=== PATIENT | female | born 1965 | race Caucasian/White ===

== ENCOUNTER 2017-06-10 18:54 | Emergency (ER) | payer OTHER ==
[2017-06-10] MEDS ORDERED: SODIUM CHLORIDE 0.9% 1,000 ML IV STA (20:32)
--- NOTE | 2017-06-10 21:02 | ED ---
Abdominal Pain HPI - General Chief Complaint: Abdominal Pain Stated Complaint: abdominal pain-sent by [facility] [employer] Time Seen by Provider: 06/10/17 20:32 Source: patient, RN notes reviewed Mode of arrival: ambulatory Limitations: no limitations - History of Present Illness Initial Comments: 51-year-old female presented from it to complaint of abdominal pain, bloating. Patient states symptoms started today. She states that she has more diffuse abdominal pain but is worse when she presses on her abdomen. Patient states she did have some back discomfort earlier but has resolved. Denies chest pain, shortness breath. Patient had prior appendectomy no other abdominal surgeries. She denies any nausea vomiting diarrhea constipation. No dysuria no hematuria. Patient was seen at [facility] and sent here for further evaluation. She did have urinalysis which was unremarkable. Patient denies prior colonoscopy. Denies any melena or hematochezia. - Related Data Home Medications Medication Instructions Recorded Confirmed No Known Home Medications [No 06/10/17 06/10/17 Known Home Medications] Allergies Allergy/AdvReac Type Severity Reaction Status Date / Time No Known Allergies Allergy Verified 06/10/17 20:36 Review of Systems ROS Statement: Those systems with pertinent positive or pertinent negative responses have been documented in the HPI. ROS Other: All systems not noted in ROS Statement are negative. Past Medical History Past Medical History: No Reported History History of Any Multi-Drug Resistant Organisms: None Reported Past Surgical History: Appendectomy, Tubal Ligation Past Psychological History: No Psychological Hx Reported Smoking Status: Current every day smoker Past Alcohol Use History: Occasional Past Drug Use History: None Reported General Exam Limitations: no limitations General appearance: alert, in no apparent distress Head exam: Present: atraumatic, normocephalic, normal inspection Neck exam: Present: normal inspection. Absent: tenderness, meningismus, lymphadenopathy Respiratory exam: Present: normal lung sounds bilaterally. Absent: respiratory distress, wheezes, rales, rhonchi, stridor Cardiovascular Exam: Present: regular rate, normal rhythm, normal heart sounds. Absent: systolic murmur, diastolic murmur, rubs, gallop, clicks GI/Abdominal exam: Present: soft, tenderness (Eljf-me-wvriiwnp diffuse), normal bowel sounds. Absent: distended, guarding, rebound, rigid Back exam: Absent: CVA tenderness (R), CVA tenderness (L) Course Vital Signs 06/10/17 06/10/17 19:39 21:53 Temperature 97.5 F L 98.9 F Pulse Rate 91 83 Respiratory 16 18 Rate Blood Pressure 112/72 122/72 O2 Sat by Pulse 100 98 Oximetry Medical Decision Making - Lab Data Result diagrams: 06/10/17 21:18 06/10/17 21:18 Lab Results 06/10/17 06/10/17 06/10/17 Range/Units 21:18 21:18 21:18 WBC 11.5 H (3.8-10.6) k/uL RBC 4.98 (3.80-5.40) m/uL Hgb 14.8 (11.4-16.0) gm/dL Hct 45.2 (34.0-46.0) % MCV 90.8 (80.0-100.0) fL MCH 29.7 (25.0-35.0) pg MCHC 32.8 (31.0-37.0) g/dL RDW 13.2 (11.5-15.5) % Plt Count 237 (150-450) k/uL Neutrophils % 76 % Lymphocytes % 17 % Monocytes % 4 % Eosinophils % 2 % Basophils % 0 % Neutrophils # 8.7 H (1.3-7.7) k/uL Lymphocytes # 1.9 (1.0-4.8) k/uL Monocytes # 0.5 (0-1.0) k/uL Eosinophils # 0.2 (0-0.7) k/uL Basophils # 0.0 (0-0.2) k/uL Sodium 143 (137-145) mmol/L Potassium 4.2 (3.5-5.1) mmol/L Chloride 101 (98-107) mmol/L Carbon Dioxide 28 (22-30) mmol/L Anion Gap 14 mmol/L BUN 15 (7-17) mg/dL Creatinine 0.80 (0.52-1.04) mg/dL Est GFR (CKD-EPI)AfAm >90 (>60 ml/min/1.73 sqM) Est GFR (CKD-EPI)NonAf 85 (>60 ml/min/1.73 sqM) Glucose 99 (74-99) mg/dL Calcium 10.0 (8.4-10.2) mg/dL Total Bilirubin 0.4 (0.2-1.3) mg/dL AST 23 (14-36) U/L ALT 23 (9-52) U/L Alkaline Phosphatase 78 (38-126) U/L Total Protein 7.4 (6.3-8.2) g/dL Albumin 4.5 (3.5-5.0) g/dL Amylase 50 (30-110) U/L Lipase 65 (23-300) U/L Urine Color Colorless Urine Appearance Clear (Clear) Urine pH 5.5 (5.0-8.0) Ur Specific [place] 1.005 (1.001-1.035) Urine Protein Negative (Negative) Urine Glucose (UA) Negative (Negative) Urine Ketones Negative (Negative) Urine Blood Negative (Negative) Urine Nitrite Negative (Negative) Urine Bilirubin Negative (Negative) Urine Urobilinogen <2.0 (<2.0) mg/dL Ur Leukocyte Esterase Moderate H (Negative) Urine RBC 1 (0-5) /hpf Urine WBC 5 (0-5) /hpf Ur Squamous Epith Cells <1 (0-4) /hpf Urine Bacteria Few H (None) /hpf Disposition Clinical Impression: Abdominal pain, Enteritis Disposition: HOME SELF-CARE Condition: Stable Instructions: Abdominal Pain (ED) Additional Instructions: Please return to the Emergency Department if symptoms worsen or any other concerns. Referrals: None,Stated [Primary Care Provider] - 1-2 days Vivi Robles MD [STAFF PHYSICIAN] - 1-2 days Time of Disposition: 00:15
--- NOTE | 2017-06-10 21:30 | XR ---
EXAMINATION TYPE: XR KUB DATE OF EXAM: 06/10/2017 COMPARISON: NONE HISTORY: Abdominal pain TECHNIQUE: 2 views FINDINGS: There is no sign of intestinal obstruction or pneumoperitoneum. Fecal pattern is normal. Th ere is some linear density at the right lung base. There are no pathologic calcifications over the ki dneys. IMPRESSION: Nonacute abdomen. Subsegmental atelectasis at the right lung base.
[2017-06-10 21:44] LABS: Appearance,Urine Clear (Clear); Bacteria,Urine Few /hpf; Bilirubin,Urine Negative (Negative); Blood,Urine Negative (Negative); Color,Urine Colorless; Glucose,Urine (UA) Negative (Negative); Ketones,Urine Negative (Negative); Leukocyte Esterase,Urine Moderate (Negative); Nitrite,Urine Negative (Negative); PH, Urine 5.5 (5.0-8.0); Protein,Urine Negative (Negative); RBC,Urine 1 /hpf (0-5); Specific Gravity,Urine 1.005 (1.001-1.035); Squamous Epithelial Cell,Urine <1 /hpf (0-4); Urobilinogen,Urine <2.0 mg/dL (<2.0); WBC,Urine 5 /hpf (0-5)
[2017-06-10 21:45] LABS: Basophils % (A) 0 %; Eosinophils # (A) 0.2 k/uL (0-0.7); Eosinophils % (A) 2 %; HCT 45.2 % (34.0-46.0); HGB 14.8 gm/dL (11.4-16.0); Lymphocytes # (A) 1.9 k/uL (1.0-4.8); Lymphocytes % (A) 17 %; MCH 29.7 pg (25.0-35.0); MCHC 32.8 g/dL (31.0-37.0); MCV 90.8 fL (80.0-100.0); Mean Platelet Volume 7.5; Monocytes # (A) 0.5 k/uL (0-1.0); Monocytes % (A) 4 %; Neutrophils # (A) 8.7 k/uL (1.3-7.7); Neutrophils % (A) 76 %; Platelet Count 237 k/uL (150-450); RBC 4.98 m/uL (3.80-5.40); RDW 13.2 % (11.5-15.5); WBC 11.5 k/uL (3.8-10.6)
[2017-06-10 21:54] VITALS: RESP 18
[2017-06-10 22:04] LABS: ALT 23 U/L (9-52); AST 23 U/L (14-36); Albumin 4.5 g/dL (3.5-5.0); Alkaline Phosphatase 78 U/L (38-126); Amylase 50 U/L (30-110); Anion Gap 14 mmol/L; Blood Urea Nitrogen 15 mg/dL (7-17); Carbon Dioxide 28 mmol/L (22-30); Chloride 101 mmol/L (98-107); Glucose 99 mg/dL (74-99); Lipase 65 U/L (23-300); Potassium 4.2 mmol/L (3.5-5.1); Sodium 143 mmol/L (137-145); Total Bilirubin 0.4 mg/dL (0.2-1.3); Total Protein 7.4 g/dL (6.3-8.2)
[2017-06-10] MEDS ORDERED: RX INFO: IV CONTRAST WAS GIVEN 1 EACH MISC MISCELLANE PRN (22:09)
--- NOTE | 2017-06-11 00:10 | CT ---
EXAMINATION TYPE: CT abdomen pelvis w con DATE OF EXAM: 06/10/2017 COMPARISON: NONE HISTORY: Generalized abdominal pain and bloating. CT DLP: 957.7 mGycm Automated exposure control for dose reduction was used. TECHNIQUE: Helical acquisition of images was performed from the lung bases through the pelvis. CONTRAST: Performed without Oral Contrast and with IV Contrast, patient injected with 100 mL of Isovue 300. FINDINGS: There is some patchy atelectasis at the lung bases. There is no pleural effusion. There is no pericar dial effusion. Heart is enlarged. Liver spleen pancreas gallbladder appear normal. Bile ducts are not dilated. There is no adrenal mass . Kidneys show satisfactory contrast opacification. There is no hydronephrosis. There is a 1 cm hypod ensity in the lateral right kidney consistent with cortical cyst. There is no retroperitoneal adenopa thy. There is no ascites. I see no intestinal wall thickening. There are no dilated loops. Bladder distends smoothly. There is no sign of a pelvic mass. Bony structures are intact. Uterus is retroverted. IMPRESSION: SMALL RIGHT RENAL CORTICAL CYST. NO EVIDENCE OF RENAL OBSTRUCTION OR STONE. NO SIGN OF APPENDICITIS. ATELECTASIS AT THE LUNG BASES.
[2017-06-11 00:34] VITALS: BP 127/71; PULSE 88; TEMP 98.3
== END 2017-06-11 00:34 | disposition home or self-care (01) ==
LOC: EC 18:54
DX: K52.9 Noninfective gastroenteritis and colitis, unspecified (principal); F17.200 Nicotine dependence, unspecified, uncomplicated; Z90.49 Acquired absence of other specified parts of digestive tract
CPT/HCPCS: 99284; 96360; 36415; 80053; 82150; 83690; 85025; 81001; 74018; 74177; Q9967

== ENCOUNTER → 2017-12-31 | Outpatient (CLI) | payer OTHER ==
--- NOTE | 2017-12-31 15:23 | XR ---
EXAMINATION TYPE: XR femur LT DATE OF EXAM: 12/31/2017 CLINICAL HISTORY: Left finger pain and bruising after fall. TECHNIQUE: Two views of the left femur are obtained. COMPARISON: None FINDINGS: There is no acute fracture or dislocation seen in the left femur. The left hip and knee j oints demonstrate mild joint space narrowing compatible with mild arthropathy of both joints The over lying soft tissue appears unremarkable. IMPRESSION: There is no acute fracture or dislocation in the left femur.
--- NOTE | 2017-12-31 15:27 | XR ---
EXAMINATION TYPE: XR Hip Complete LT DATE OF EXAM: 12/31/2017 CLINICAL HISTORY: Left hip pain and bruising after a fall TECHNIQUE: AP and frogleg views of the left hip are obtained. COMPARISON: None. FINDINGS: There is no acute fracture/dislocation evident in the left hip. The joint space in the le ft hip demonstrates small subchondral cysts, acetabular sclerosis and slight cephalad joint space huey rowing compatible with mild arthropathy.. The overlying soft tissue appears unremarkable. IMPRESSION: There is no acute fracture or dislocation in the left hip.
== END | disposition home or self-care (01) ==
LOC: RADXRMAIN 14:54
PROVIDERS: ATTEND Family Medicine
DX: S79.922A Unspecified injury of left thigh, initial encounter (principal); R58 Hemorrhage, not elsewhere classified
CPT/HCPCS: 73502

== ENCOUNTER → 2017-12-31 | Outpatient (CLI) | payer OTHER ==
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
== END | disposition home or self-care (01) ==
LOC: RADUSWWP 14:11
PROVIDERS: ATTEND Family Medicine
DX: S79.922A Unspecified injury of left thigh, initial encounter (principal)

== ENCOUNTER → 2021-05-01 | Outpatient (CLI) | payer OTHER ==
--- NOTE | 2021-05-02 10:46 | MM ---
Reason for exam: screening (asymptomatic). Last mammogram was performed 14 years and 10 months ago. History: Patient is postmenopausal. Physical Findings: A clinical breast exam by your physician is recommended on an annual basis and results should be correlated with mammographic findings. MG Screening Mammo w CAD Bilateral CC and MLO view(s) were taken. Prior study comparison: July 08, 2006, bilateral screening mammogram w/CAD. The breast tissue is heterogeneously dense. This may lower the sensitivity of mammography. There is no discrete abnormality. ASSESSMENT: Negative, BI-RAD 1 RECOMMENDATION: Routine screening mammogram of both breasts in 1 year.
== END | disposition home or self-care (01) ==
LOC: RADMAMWWP 12:49
PROVIDERS: ATTEND Family Medicine
DX: Z12.31 Encounter for screening mammogram for malignant neoplasm of breast (principal); Z78.0 Asymptomatic menopausal state
CPT/HCPCS: 77067

== ENCOUNTER → 2021-05-01 | Outpatient (CLI) | payer OTHER ==
--- NOTE | 2021-05-01 15:02 | US ---
EXAMINATION TYPE: US thyroid st tissue head/neck DATE OF EXAM: 05/01/2021 COMPARISON: NONE CLINICAL HISTORY: R79.89 Abn blood chemistry. Patient on thyroid meds GLAND SIZE: Right Lobe: 5.2 x 1.5 x 1.3 cm Overall Parenchyma: heterogenous Left Lobe: 4.7 x 1.3 x 1.4 cm Overall Parenchyma: heterogeneous Isthmus Thickness: 0.1 cm NODULES RIGHT: # of nodules measured on right: 0 LEFT: # of nodules measured on left: 0 ISTHMUS: # of nodules measured in the isthmus: 0 Bilateral neck scanned, no evidence of lymphadenopathy. IMPRESSION: 1. Unremarkable thyroid ultrasound.
== END | disposition home or self-care (01) ==
LOC: RADUSWWP 12:51
PROVIDERS: ATTEND Family Medicine
DX: R79.89 Other specified abnormal findings of blood chemistry (principal)
CPT/HCPCS: 76536

== ENCOUNTER 2024-06-18 08:38 | Day surgery (SDC) | payer OTHER ==
[2024-06-18 09:13] LABS: Mean Platelet Volume 9.1 fL (9.5-12.2); Platelet Count 211 10*3/uL (140-440)
[2024-06-18 09:20] LABS: Prothrombin Time 10.9 sec (10.0-12.5)
[2024-06-18 09:25] VITALS: TEMP 98.1
[2024-06-18 09:49] VITALS: RESP 16
--- NOTE | 2024-06-18 10:32 | XR ---
EXAMINATION TYPE: XR chest 1V portable DATE OF EXAM: 06/18/2024 10:25 AM COMPARISON: CT chest abdomen pelvis 04/17/2024 TECHNIQUE: XR chest 1V portable Portable AP radiograph of the chest. CLINICAL INDICATION:Female, 59 years old with history of post thora; FINDINGS: Lungs/Pleura: Decreased now trace right pleural effusion with right basilar atelectasis status post t horacentesis. No discrete pneumothorax. Linear scarring or atelectasis within the right midlung. Pulmonary vascularity: Unremarkable. Heart/mediastinum: Cardiomediastinal silhouette is unremarkable. Musculoskeletal: No acute osseous pathology. IMPRESSION: Decreased now trace right pleural effusion with adjacent atelectasis status post thoracentesis. No di screte pneumothorax. [facility], , 06/18/2024 10:30 AM
[2024-06-18 10:51] VITALS: BP 144/92; PULSE 95
--- NOTE | 2024-06-18 12:18 | US ---
EXAMINATION TYPE: US thoracentesis DATE OF EXAM: 06/18/2024 10:19 AM COMPARISON: , chest radiograph CLINICAL INDICATION:Female, 59 years old with history of J91.8 PLEURAL EFFUSION IN OTHER CONDITIONS C LASSIF; PROCEDURE: Informed consent was obtained. The risks of the procedure were extensively explained incl uding risk of pneumothorax and need for chest tube placement. Procedure was performed in the Ultraso und procedure suite. Ultrasound imaging of the chest demonstrates right pleural effusion. An approp riate access site was localized to the posterior left pleural space. Timeout was taken per protocol. The skin was prepped and draped in the usual sterile fashion and then locally anesthetized with 1% l idocaine. The pleural cavity was then accessed via a 5-[place] one-step needle/catheter. Approximate ly 1500 mL of clear straw-colored fluid was obtained. Samples were sent to the lab for analysis. Pl eural catheter was removed from the patient.Postprocedural imaging of the chest demonstrate a decreas ed amount of pleural fluid. Patient tolerated procedure well without immediate complication. Hemostasis at the procedural site w as obtained with a sterile bandage placed. Immediate following the procedure, an inspiratory and expi ratory chest x-ray was reviewed. No post procedure pneumothorax was identified. The patient was monit ored in the holding area for approximately one hour following the procedure and was subsequently disc harged in stable condition. IMPRESSION: Ultrasound guided thoracentesis, with approximately 1500 mL of clear straw-colored fluid drained. Pathology results pending. No immediate complications were evident. The patient was informe d by the nurse that we do not recommend air travel within 24 hours of the thoracentesis. Apparently t he patient is scheduled for air travel on 06/19/2024. [facility], , 06/18/2024 12:16 PM
== END 2024-06-18 10:45 | disposition home or self-care (01) ==
LOC: RADPROMAIN 08:38
PROVIDERS: ATTEND Internal Medicine Hematology & Oncology
DX: J98.4 Other disorders of lung (principal); J91.8 Pleural effusion in other conditions classified elsewhere
CPT/HCPCS: 32555; 36415; 71045; 82947; 85049; 85610; 88108; 88305; 88341; 88342

== ENCOUNTER → 2024-07-10 | Outpatient (CLI) | payer OTHER ==
[2024-07-10 11:57] LABS: African American GFR (CKD) >90 (>60 ml/min/1.73 sqM); Blood Urea Nitrogen 14 mg/dL (7-17); Non-African American GFR(CKD) >90 (>60 ml/min/1.73 sqM)
--- NOTE | 2024-07-10 18:48 | CT ---
EXAMINATION TYPE: CT ChestAbdPelvis w con DATE OF EXAM: 07/10/2024 1:32 PM COMPARISON: 04/17/2024 CLINICAL INDICATION: Female, 59 years old with history of C34.90 MALIGNANT NEOPLASM OF UNSP PART OF U NSP BRO, LUNG CANCER TECHNIQUE: CT ChestAbdPelvis w con , with sagittal coronal reformats. If MIP/3-D images were created, there are created on a separate workstation. Contrast used:100ml mL of Isovue 300 with IV Contrast, (none if empty) Oral contrast used: with Oral Contrast (none if empty) CT DLP: 1275 mGycm, Automated exposure control for dose reduction was used. FINDINGS: CT CHEST: Thyroid appears atrophic. There is moderate right pleural effusion, similar to comparison1. Scattered punctate densities are wi thin the lung herrmann. Example images series 4 image 22, image 20, image 18. There is a 0.6 x 1.8 cm spiculated oval density in the periphery of the right anterior lateral lung. Series 4 image 27. This has enlarged from the comparison. Increased densities in the right infrahilar region with peribronchial surrounding soft tissue. No enlarged mediastinal or hilar adenopathy is evident. No significant coronary artery calcification s. The ascending aorta diameter at the level of the main pulmonary artery is 3.6 cm. The main pulmonary artery diameter at the bifurcation is 3.8 cm. Correlate for pulmonary hypertension. Moderate pericar dial effusion is present. CT ABDOMEN: Liver: Normal Spleen: Normal Pancreas: Normal Adrenal glands: Left adrenal gland is somewhat rounded measuring 1.8 cm. There is thickening of the r ight adrenal gland with a transverse dimension of 1.5 cm. Gallbladder: Normal Kidneys: No masses are evident. No hydronephrosis is present. There is a 1.6 cm cyst on the lateral right kidney. Delayed images were obtained through the kidneys, which remain unremarkable. Aorta: Vascular calcification is within the aorta. Inferior vena cava: Normal. CT PELVIS: Varicosities are within the anterior subcutaneous abdomen since the periumbilical region Loops of bowel within the abdomen and pelvis are normal. There are loops of bowel which are incom pletely distended or lack oral contrast limiting their evaluation. Appendix: Normal as visualized. Urinary bladder: Decompressed limiting evaluation Genitourinary structures: Uterus appears normal. Adnexa are unremarkable. Osseous structures: No suspicious lytic or sclerotic lesions. IMPRESSION: 1. Spiculated peripheral right lung density suspicious for the patient's lung cancer. 2. Moderate right pleural effusion, stable. 3. Moderate pericardial effusion slightly increased from comparison. 4. Thickening of the bilateral adrenal glands. Metastasis should be considered. 5. Scattered new punctate nodularities within the periphery of the right lung. Consider metastasis. [facility], , 07/10/2024 6:45 PM
== END | disposition home or self-care (01) ==
LOC: RADCTMAIN 11:05
PROVIDERS: ATTEND Internal Medicine Hematology & Oncology
DX: C34.90 Malignant neoplasm of unspecified part of unspecified bronchus or lung (principal); J98.4 Other disorders of lung; R59.0 Localized enlarged lymph nodes; J90 Pleural effusion, not elsewhere classified; I31.39 Other pericardial effusion (noninflammatory); R91.8 Other nonspecific abnormal finding of lung field; Z71.3 Dietary counseling and surveillance
CPT/HCPCS: 71260; 74177; 82565; 84520

== ENCOUNTER → 2024-07-21 | Outpatient (CLI) | payer OTHER ==
[2024-07-21 15:06] LABS: African American GFR (CKD) >90 (>60 ml/min/1.73 sqM); Blood Urea Nitrogen 16 mg/dL (7-17); Non-African American GFR(CKD) >90 (>60 ml/min/1.73 sqM)
--- NOTE | 2024-07-22 08:25 | CT ---
EXAMINATION TYPE: CT brain w con DATE OF EXAM: 07/21/2024 COMPARISON: PET CT 01/27/2024 and MRI brain 12/07/2023 CLINICAL INDICATION: Female, 59 years old with history of G93.89 OTHER SPECIFIED DISORDERS OF BRAIN; PHH, LUMP ON BACK OF HEAD X 4 MONTHS, HX OF LUNG CA- DOING THERAPY NOW, FINISHED CHEMO 3+ MONTHS AGO TECHNIQUE: CT of the brain is performed with IV Contrast, patient injected with 100 ml mL of Isovue 300. Coronal and sagittal reconstructions performed. CT DLP: 1156 mGycm Automated exposure control for dose reduction was used. FINDINGS: Multiple new enhancing intracranial masses, largest anterior right frontal lobe measuring 3.3 cm with surrounding vasogenic edema. This results in slight 4 mm of leftward midline shift anteriorly. Numerous additional lesions are present, a second dominant lesion involving the left anterior body of the corpus callosum measuring up to 1.9 cm. 1.8 cm lesion left cerebellar hemisphere. There is a large enhancing mass centered over the right parietal calvarium with extraosseous extensio n prominently protruding the scalp and also into the extra-axial space. This measures up to 8.2 cm wi de by 4.6 cm thick by 7.9 cm AP, coronal image 53 and sagittal image 40. This also causes some crowdi ng of the right parietal gyri. There may be slight mass effect on to the right lateral ventricle though this was smaller on the 12/06 exam as well probably in part due to anatomic variation. No effacement of basal subarachnoid cisterns. Elliott-white matter differential appears maintained. Paranasal sinuses and mastoid air cells well pneumatized. Orbits and globes are intact. IMPRESSION: 1. Disease progression with numerous new brain metastases, largest measuring 3.3 cm. This largest les ion is in the anterior frontal lobe with mild vasogenic edema and causing minimal 4 mm of anterior le ftward midline shift. No herniation. 2. Large mass centered over the right parietal calvarium with extraosseous extension protruding into the scalp and also into the extra-axial space. This measures 8.2 x 4.6 x 7.9 cm. Extension into the e xtra-axial space causes crowding of the underlying parietal cortex. [facility], , 07/22/2024 8:22 AM
== END | disposition home or self-care (01) ==
LOC: RADCTMAIN 14:26
PROVIDERS: ATTEND Internal Medicine Hematology & Oncology
DX: C79.31 Secondary malignant neoplasm of brain (principal); G93.89 Other specified disorders of brain; R59.0 Localized enlarged lymph nodes; J98.4 Other disorders of lung; G93.6 Cerebral edema; Z71.3 Dietary counseling and surveillance
CPT/HCPCS: 82565; 84520; 70460; 36415; Q9967

== ENCOUNTER → 2024-08-10 | Outpatient (CLI) | payer OTHER ==
--- NOTE | 2024-08-10 09:34 | XR ---
EXAMINATION TYPE: XR chest w decubitus 4 views DATE OF EXAM: 08/10/2024 9:21 AM COMPARISON: None. CLINICAL INDICATION: Female, 59 years old with history of C79.31 SECONDARY MALIGNANT NEOPLASM OF BRAI N, TECHNIQUE: XR chest w decubitus 4 views view(s) obtained. FINDINGS: The heart size is normal. The pulmonary vasculature is normal. There is a small right free-flowing pleural effusion. No left pleural effusion identified.. Atelectatic changes at the right base have resolved. IMPRESSION: 1. Small right free-flowing pleural effusion [facility], , 08/10/2024 9:31 AM
== END | disposition home or self-care (01) ==
LOC: RADXRMAIN 08:54
PROVIDERS: ATTEND Radiology Radiation Oncology
DX: C79.31 Secondary malignant neoplasm of brain (principal); J90 Pleural effusion, not elsewhere classified
CPT/HCPCS: 71048

== ENCOUNTER → 2024-08-11 | Outpatient (CLI) | payer OTHER ==
[2024-08-11 15:07] LABS: Basophils # (A) 0.02 X 10*3/uL (0.00-0.10); Basophils % (A) 0.2 %; Eosinophils # (A) 0.06 X 10*3/uL (0.04-0.35); Eosinophils % (A) 0.6 %; HGB 14.6 g/dL (12.0-15.0); Lymphocytes # (A) 0.39 X 10*3/uL (0.90-5.00); Lymphocytes % (A) 4.1 %; MCH 29.7 pg (27.0-32.0); MCHC 32.4 g/dL (32.0-37.0); MCV 91.6 FL (80.0-97.0); Mean Platelet Volume 10.5 FL (9.5-12.2); Monocytes % (A) 6.4 %; NRBC Per 100 WBC 0 X 10*3/uL (0.00-0.01); Neutrophils # (A) 8.29 X 10*3/uL (1.80-7.70); Platelet Count 199 X 10*3/uL (140-440); RBC 4.91 X 10*6/uL (4.10-5.20); RDW 13.5 % (11.5-14.5); WBC 9.43 X 10*3/uL (4.50-10.00)
[2024-08-11 15:31] LABS: ALT 14 U/L (8-44); AST 12 U/L (13-35); Albumin 4.2 g/dL (3.8-4.9); Albumin/Globulin Ratio 1.62 Ratio (1.60-3.17); Alkaline Phosphatase 99 U/L (41-126); BUN/Creat Ratio 27.78 Ratio (12.00-20.00); Calcium 9.4 mg/dL (8.7-10.3); Carbon Dioxide 27.5 mmol/L (21.6-31.8); Chloride 96 mmol/L (96-109); Globulin 2.6 g/dL (1.6-3.3); Glucose 319 mg/dL (70-110); Potassium 4.8 mmol/L (3.5-5.5); Sodium 136 mmol/L (135-145); T4, Free (Free Thyroxine) 1.72 ng/dL (0.80-1.80); Total Bilirubin 0.5 mg/dL (0.3-1.2); Total Protein 6.8 g/dL (6.2-8.2)
== END | disposition home or self-care (01) ==
LOC: LABWHC1 07:37
PROVIDERS: ATTEND Radiology Radiation Oncology
DX: C79.31 Secondary malignant neoplasm of brain (principal); D63.0 Anemia in neoplastic disease; E03.2 Hypothyroidism due to medicaments and other exogenous substances; E55.9 Vitamin D deficiency, unspecified; R53.82 Chronic fatigue, unspecified
CPT/HCPCS: 36415; 80053; 83036; 84439; 84443; 84481; 85025

== ENCOUNTER 2024-08-24 11:18 | Inpatient (IN) | payer OTHER ==
--- NOTE | 2024-08-24 11:33 | ED ---
General Adult HPI - General Source: patient, family, RN notes reviewed Mode of arrival: wheelchair Limitations: no limitations <Julieth Elkins - Last Filed: 08/24/24 11:34> - General Source: patient, family, RN notes reviewed Limitations: no limitations <Carl Griffith - Last Filed: 08/24/24 15:56> - General Stated complaint: Weakness Time Seen by Provider: 08/24/24 11:32 - History of Present Illness Initial comments: Quick note: 59-year-old female presented to the ER for evaluation of weakness. Patient has known stage IV lung cancer and is following up with Dr. Rene. Sister reports patient is extremely weak and unable to walk. This has been worse over the past couple of days. Patient was sent in by Dr. Rene for further evaluation given this. (Julieth Elkins) Patient is a 59-year-old female present to the emergency department for weakness. History provided by sister. Patient does not provide any significant history but will state her first name and where she is. Patient has difficulty following commands. 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 Patient has been on chemotherapy x 3. Patient has had immunotherapy stopped recently. Patient is on radiation treatment to the brain for metastasis. Patient has not been eating or drinking much the last couple of days. Today patient is not getting out of bed without assistance. Sister states patient seems more drowsy even now. Patient is full code at this time. (Carl Griffith) - Related Data Home Medications Medication Instructions Recorded Confirmed Albuterol Inhaler [Ventolin Hfa 1 - 2 puff INHALATION RT-Q6H PRN 11/06/23 07/23/24 Inhaler] Levothyroxine Sodium [Levoxyl] 112 mcg PO DAILY 06/15/24 07/23/24 Potassium Chloride ER [K-Dur 20] 20 meq PO W/BRKFST 06/18/24 07/23/24 Atorvastatin [Lipitor] 10 mg PO HS 07/23/24 07/23/24 hydroCHLOROthiazide [Hydrodiuril] 25 mg PO DAILY 07/23/24 07/23/24 Previous Rx's Medication Instructions Recorded Famotidine [Pepcid] 20 mg PO BID #60 tablet 07/25/24 dexAMETHasone ORAL [Hexadrol] 4 mg PO Q6HR #120 tablet 07/25/24 levETIRAcetam [Keppra] 500 mg PO Q12HR #60 tab 07/25/24 metFORMIN HCL [metFORMIN HCL ER 500 mg PO BID #60 tab 07/25/24 Osmotic] Allergies Allergy/AdvReac Type Severity Reaction Status Date / Time No Known Allergies Allergy Verified 08/24/24 11:50 Review of Systems ROS Other: All systems not noted in ROS Statement are negative. <Julieth Elkins - Last Filed: 08/24/24 11:34> ROS Other: All systems not noted in ROS Statement are negative. Constitutional: Denies: fever Eyes: Denies: eye pain ENT: Denies: ear pain Endocrine: Reports: fatigue Neurological: Reports: confusion <Carl Griffith - Last Filed: 08/24/24 15:56> ROS Statement: Those systems with pertinent positive or pertinent negative responses have been documented in the HPI. Past Medical History Past Medical History: COPD, Diabetes Mellitus, Hyperlipidemia, Hypertension, Thyroid Disorder Additional Past Medical History / Comment(s): Hypertension new october 2023 while in hospital, pleural effusion, lung cancer History of Any Multi-Drug Resistant Organisms: None Reported Past Surgical History: Appendectomy, Tubal Ligation Additional Past Surgical History / Comment(s): lung biopsy october 2023, Multi thoracentesis Past Anesthesia/Blood Transfusion Reactions: No Reported Reaction Smoking Status: Former smoker Additional Past Alcohol Use History / Comment(s): Smokes 1 PPD. States drinks m ore than than 7 drinks per week. - Past Family History Mother Family Medical History: Cancer Additional Family Medical History / Comment(s): Lung <Julieth Elkins - Last Filed: 08/24/24 11:34> General Exam <Julieth Elkins - Last Filed: 08/24/24 11:34> Limitations: no limitations General appearance: in no apparent distress (Drowsy. Arousable to touch.) Head exam: Present: atraumatic Eye exam: Present: normal appearance, PERRL, EOMI ENT exam: Present: mucous membranes dry Neck exam: Present: normal inspection Respiratory exam: Present: normal lung sounds bilaterally Cardiovascular Exam: Present: tachycardia GI/Abdominal exam: Present: soft. Absent: tenderness Extremities exam: Present: normal inspection Neurological exam: Present: alert, altered. Absent: motor sensory deficit (Fol low some commands) Expanded Neurological exam: Present: protecting the airway Patient oriented to: Present: person, place. Absent: time Psychiatric exam: Present: flat affect Skin exam: Present: mottled <Carl Griffith - Last Filed: 08/24/24 15:56> - General Exam Comments Initial Comments: Visual Physical Exam Vital signs reviewed General: ill-appearing, nontoxic, no acute distress. Head: Normocephalic, atraumatic Eyes: PERRLA, EOMI ENT: Airway patent Chest: Nonlabored breathing Skin: No visual rash, normal skin tone, discoloration of bilateral fingers and toes Neuro: Alert and oriented 3 Musculoskeletal: No gross abnormalities (Julieth Elkins) Course Vital Signs 08/24/24 08/24/24 08/24/24 11:39 13:52 15:00 Temperature 97.5 F L Pulse Rate 133 H 122 H 123 H Respiratory 20 30 H 20 Rate Blood Pressure 100/80 122/80 110/83 O2 Sat by Pulse 95 98 96 Oximetry EKG Findings - EKG Results: EKG: interpreted by ERMD, normal axis, normal QRS, normal ST/T EKG shows: tachycardia <Carl Griffith - Last Filed: 08/24/24 15:56> Medical Decision Making <Julieth Elkins - Last Filed: 08/24/24 11:34> - Lab Data Result diagrams: 08/24/24 13:51 08/24/24 13:51 <Carl Griffith - Last Filed: 08/24/24 15:56> - Medical Decision Making I performed the quick note portion of this chart. Electronically signed by Julieth Elkins PA-C (Julieth Elkins) Was pt. sent in by a medical professional or institution ([facility], [facility], urgent care, hospital, or [facility]...) When possible be specific @ -No Did you speak to anyone other than the patient for history (EMS, parent, family, police, friend...)? What history was obtained from this source @ -Sister is present and helps provide history as patient is a poor historian and not speaking much Did you review nursing and triage notes (agree or disagree)? Why? @ -I reviewed and agree with nursing and triage notes Were old charts reviewed (outside hosp., previous admission, EMS record, old EKG, old radiological studies, urgent care reports/EKG's, [facility] records)? Report findings @ -Previous x-rays were reviewed without evidence of nodule seen today Differential Diagnosis (chest pain, altered mental status, abdominal pain women, abdominal pain men, vaginal bleeding, weakness, fever, dyspnea, syncope, headache, dizziness, GI bleed, back pain, seizure, CVA, palpatations, mental health, musculoskeletal)? @ -Differential Altered Mental Status: Hypoglycemia, DKA, hypercapnia, ETOH, overdose, CO poisoning, trauma, myxedema coma, HTN encephalopathy, infection, encephalitis, psychosis, intercranial hemorrhage, hepatic encephalopathy, meningitis, CVA, this is not meant to be an all-inclusive list EKG interpreted by me (3pts min.). @ -As above X-rays interpreted by me (1pt min.). @ -Chest x-ray shows pulmonary nodules CT interpreted by me (1pt min.). @ -CT scan of the brain shows lesions, somewhat improved from prior U/S interpreted by me (1pt. min.). @ -None done What testing was considered but not performed or refused? (CT, X-rays, U/S, labs)? Why? @ -None What meds were considered but not given or refused? Why? @ -None Did you discuss the management of the patient with other professionals (professionals i.e. , PA, ICE SELLER, lab, RT, psych nurse, social security benefits interviewer, retail wireless sales representative, teacher, airport operations officer, hospice case manager)? Give summary @ -Case discussed with practitioner Mary Jane Perkins who will admit covering Dr. Junior Was smoking cessation discussed for >3mins.? @ -No Was critical care preformed (if so, how long)? @ -31 minutes critical care time performed Were there social determinants of health that impacted care today? How? (Homelessness, low income, unemployed, alcoholism, drug addiction, transportation, low edu. Level, literacy, decrease access to med. care, nursing home, rehab)? @ -No Was there de-escalation of care discussed even if they declined (Discuss DNR or withdrawal of care, Hospice)? DNR status @ -No What co-morbidities impacted this encounter? (DM, HTN, Smoking, COPD, CAD, Cancer, CVA, ARF, Chemo, Hep., AIDS, mental health diagnosis, sleep apnea, morbid obesity)? @ -Stage IV lung cancer Was patient admitted / discharged? Hospital course, mention meds given and route, prescriptions, significant lab abnormalities, going to OR and other pertinent info. @ -Patient presents with history of stage IV lung cancer with new altered mental status. Patient has elevated sugar with [place] and DKA. Patient will be admitted. Patient and family updated. Patient is somewhat improved on reevaluation. Patient has received fluid boluses. DKA protocol will be started. Admission orders written. Undiagnosed new problem with uncertain prognosis? @ -No Drug Therapy requiring intensive monitoring for toxicity (Heparin, Nitro, Insulin, Cardizem)? @ -No Were any procedures done? @ -No Diagnosis/symptom? @ -Diabetic ketoacidosis, acute kidney injury Acute, or Chronic, or Acute on Chronic? @ -Acute, acute Uncomplicated (without systemic symptoms) or Complicated (systemic symptoms)? @ -Default Side effects of treatment? @ -No Exacerbation, Progression, or Severe Exacerbation? @ -No Poses a threat to life or bodily function? How? (Chest pain, USA, ID, pneumonia, PE, COPD, DKA, ARF, appy, cholecystitis, CVA, Diverticulitis, Homicidal, Suicidal, threat to staff... and all critical care pts) @ -Threat to metabolic function and renal function (Carl Griffith) - Lab Data Lab Results 08/24/24 08/24/24 08/24/24 Range/Units 13:43 13:51 13:51 WBC 8.87 (4.50-10.00) 10*3/uL RBC 6.04 H (4.10-5.20) 10*6/uL Hgb 18.4 H D (12.0-15.0) g/dL Hct 54.0 H (37.2-46.3) % MCV 89.4 (80.0-97.0) fL MCH 30.5 (27.0-32.0) pg MCHC 34.1 (32.0-37.0) g/dL Plt Count 129 L (140-440) 10*3/uL MPV 11.9 (9.5-12.2) fL Immature Gran % (Auto) 1.2 % Neutrophils % (Manual) 87 % Band Neuts % (Manual) 6 % Lymphocytes % (Manual) 4 % Monocytes % (Manual) 3 % Immature Gran # 0.11 H (0.00-0.04) 10*3/uL Neutrophils # (Manual) 8.24 H (1.3-7.7) k/uL Lymphocytes # (Manual) 0.35 L (1.0-4.8) k/uL Monocytes # (Manual) 0.27 (0-1.0) k/uL Nucleated RBCs 0 (0-0) /100 WBC Manual Slide Review Performed VBG pH (7.31-7.41) VBG pCO2 (37-51) mmHg VBG HCO3 (24-28) mmol/L Sodium 142 (137-145) mmol/L Potassium 4.7 (3.5-5.1) mmol/L Chloride 95 L (98-107) mmol/L Carbon Dioxide 10 L (22-30) mmol/L Anion Gap 37 mmol/L BUN 65 H (7-17) mg/dL Creatinine 2.06 H (0.52-1.04) mg/dL Est GFR (CKD-EPI)AfAm 29 (>60 ml/min/1.73 sqM) Est GFR (CKD-EPI)NonAf 25 (>60 ml/min/1.73 sqM) Glucose 868 H* (74-99) mg/dL POC Glucose (mg/dL) >600 H* (70-110) mg/dL POC Glu Electronic Science Teacher ID Bogdan Martínez Plasma Lactic Acid Angel (0.7-2.0) mmol/L Calcium 10.3 H (8.4-10.2) mg/dL Magnesium 3.1 H (1.6-2.3) mg/dL Total Bilirubin 0.8 (0.2-1.3) mg/dL AST 18 (14-36) U/L ALT 14 (4-34) U/L Alkaline Phosphatase 195 H (38-126) U/L Troponin I (0.000-0.034) ng/mL Total Protein 7.1 (6.3-8.2) g/dL Albumin 4.5 (3.5-5.0) g/dL Urine Color Urine Appearance (Clear) Urine pH (5.0-8.0) Ur Specific Heath (1.001-1.035) Urine Protein (Negative) Urine Glucose (UA) (Negative) Urine Ketones (Negative) Urine Blood (Negative) Urine Nitrite (Negative) Urine Bilirubin (Negative) Urine Urobilinogen (<2.0) mg/dL Ur Leukocyte Esterase (Negative) Urine RBC (0-5) /hpf Urine WBC (0-5) /hpf Hyaline Casts (0-2) /lpf Urine Mucus (None) /hpf Acetone, Qual (Negative) 08/24/24 08/24/24 08/24/24 Range/Units 13:51 13:51 13:52 WBC (4.50-10.00) 10*3/uL RBC (4.10-5.20) 10*6/uL Hgb (12.0-15.0) g/dL Hct (37.2-46.3) % MCV (80.0-97.0) fL MCH (27.0-32.0) pg MCHC (32.0-37.0) g/dL Plt Count (140-440) 10*3/uL MPV (9.5-12.2) fL Immature Gran % (Auto) % Neutrophils % (Manual) % Band Neuts % (Manual) % Lymphocytes % (Manual) % Monocytes % (Manual) % Immature Gran # (0.00-0.04) 10*3/uL Neutrophils # (Manual) (1.3-7.7) k/uL Lymphocytes # (Manual) (1.0-4.8) k/uL Monocytes # (Manual) (0-1.0) k/uL Nucleated RBCs (0-0) /100 WBC Manual Slide Review VBG pH (7.31-7.41) VBG pCO2 (37-51) mmHg VBG HCO3 (24-28) mmol/L Sodium (137-145) mmol/L Potassium (3.5-5.1) mmol/L Chloride (98-107) mmol/L Carbon Dioxide (22-30) mmol/L Anion Gap mmol/L BUN (7-17) mg/dL Creatinine (0.52-1.04) mg/dL Est GFR (CKD-EPI)AfAm (>60 ml/min/1.73 sqM) Est GFR (CKD-EPI)NonAf (>60 ml/min/1.73 sqM) Glucose (74-99) mg/dL POC Glucose (mg/dL) (70-110) mg/dL POC Glu Electronic Science Teacher ID Plasma Lactic Acid Angel 4.7 H* (0.7-2.0) mmol/L Calcium (8.4-10.2) mg/dL Magnesium (1.6-2.3) mg/dL Total Bilirubin (0.2-1.3) mg/dL AST (14-36) U/L ALT (4-34) U/L Alkaline Phosphatase (38-126) U/L Troponin I 0.115 H* (0.000-0.034) ng/mL Total Protein (6.3-8.2) g/dL Albumin (3.5-5.0) g/dL Urine Color Urine Appearance (Clear) Urine pH (5.0-8.0) Ur Specific Heath (1.001-1.035) Urine Protein (Negative) Urine Glucose (UA) (Negative) Urine Ketones (Negative) Urine Blood (Negative) Urine Nitrite (Negative) Urine Bilirubin (Negative) Urine Urobilinogen (<2.0) mg/dL Ur Leukocyte Esterase (Negative) Urine RBC (0-5) /hpf Urine WBC (0-5) /hpf Hyaline Casts (0-2) /lpf Urine Mucus (None) /hpf Acetone, Qual Positive (Negative) 08/24/24 08/24/24 Range/Units 13:52 14:43 WBC (4.50-10.00) 10*3/uL RBC (4.10-5.20) 10*6/uL Hgb (12.0-15.0) g/dL Hct (37.2-46.3) % MCV (80.0-97.0) fL MCH (27.0-32.0) pg MCHC (32.0-37.0) g/dL Plt Count (140-440) 10*3/uL MPV (9.5-12.2) fL Immature Gran % (Auto) % Neutrophils % (Manual) % Band Neuts % (Manual) % Lymphocytes % (Manual) % Monocytes % (Manual) % Immature Gran # (0.00-0.04) 10*3/uL Neutrophils # (Manual) (1.3-7.7) k/uL Lymphocytes # (Manual) (1.0-4.8) k/uL Monocytes # (Manual) (0-1.0) k/uL Nucleated RBCs (0-0) /100 WBC Manual Slide Review VBG pH 7.24 L (7.31-7.41) VBG pCO2 37 (37-51) mmHg VBG HCO3 16 L (24-28) mmol/L Sodium (137-145) mmol/L Potassium (3.5-5.1) mmol/L Chloride (98-107) mmol/L Carbon Dioxide (22-30) mmol/L Anion Gap mmol/L BUN (7-17) mg/dL Creatinine (0.52-1.04) mg/dL Est GFR (CKD-EPI)AfAm (>60 ml/min/1.73 sqM) Est GFR (CKD-EPI)NonAf (>60 ml/min/1.73 sqM) Glucose (74-99) mg/dL POC Glucose (mg/dL) (70-110) mg/dL POC Glu Electronic Science Teacher ID Plasma Lactic Acid Angel (0.7-2.0) mmol/L Calcium (8.4-10.2) mg/dL Magnesium (1.6-2.3) mg/dL Total Bilirubin (0.2-1.3) mg/dL AST (14-36) U/L ALT (4-34) U/L Alkaline Phosphatase (38-126) U/L Troponin I (0.000-0.034) ng/mL Total Protein (6.3-8.2) g/dL Albumin (3.5-5.0) g/dL Urine Color Colorless Urine Appearance Clear (Clear) Urine pH 5.5 (5.0-8.0) Ur Specific Heath 1.028 (1.001-1.035) Urine Protein Negative (Negative) Urine Glucose (UA) 4+ H (Negative) Urine Ketones 2+ H (Negative) Urine Blood Trace H (Negative) Urine Nitrite Negative (Negative) Urine Bilirubin Negative (Negative) Urine Urobilinogen <2.0 (<2.0) mg/dL Ur Leukocyte Esterase Negative (Negative) Urine RBC 2 (0-5) /hpf Urine WBC 1 (0-5) /hpf Hyaline Casts 4 H (0-2) /lpf Urine Mucus Rare H (None) /hpf Acetone, Qual (Negative) Disposition <Julieth Elkins - Last Filed: 08/24/24 11:34> Is patient prescribed a controlled substance at d/c from ED?: No Time of Disposition: 15:56 <Carl Griffith - Last Filed: 08/24/24 15:56> Clinical Impression: Diabetic ketoacidosis Disposition: ADMITTED IP TO THIS [facility] Condition: Serious Referrals: Elza Fairbanks MD [Primary Care Provider] - 1-2 days
--- NOTE | 2024-08-24 12:46 | XR ---
EXAMINATION TYPE: XR chest 2V DATE OF EXAM: 08/24/2024 12:35 PM COMPARISON: 06/18/2024, 08/10/2024 CLINICAL INDICATION: Female, 59 years old with history of Weakness, TECHNIQUE: XR chest 2V view(s) obtained. FINDINGS: The heart size is normal. The pulmonary vasculature is normal. Pleural effusion appears resolved. There is interval development of patchy bilateral lung densities. Atypical pneumonia should be considered. These have appearance for nodularity. Follow-up CT may be us eful for documentation. IMPRESSION: 1. Interval development of nodularity or infiltrates. Correlate for atypical pneumonia. Follow-up to clearing is recommended. [facility], , 08/24/2024 12:44 PM
[2024-08-24 13:44] LABS: Glucose,Whole Blood >600 mg/dL (70-110)
[2024-08-24] MEDS: SODIUM CHLORIDE 0.9% 1,000 ML IV STA ×4 (13:53→15:06)
[2024-08-24] MEDS: SODIUM CHLORIDE 0.9% 500 ML IV STA (13:54)
[2024-08-24 14:02] LABS: VBG PH 7.24 (7.31-7.41)
[2024-08-24 14:17] LABS: ALT 14 U/L (4-34); AST 18 U/L (14-36); African American GFR (CKD) 29 (>60 ml/min/1.73 sqM); Albumin 4.5 g/dL (3.5-5.0); Alkaline Phosphatase 195 U/L (38-126); Anion Gap 37 mmol/L; Blood Urea Nitrogen 65 mg/dL (7-17); Calcium 10.3 mg/dL (8.4-10.2); Carbon Dioxide 10 mmol/L (22-30); Chloride 95 mmol/L (98-107); Magnesium 3.1 mg/dL (1.6-2.3); Non-African American GFR(CKD) 25 (>60 ml/min/1.73 sqM); Potassium 4.7 mmol/L (3.5-5.1); Sodium 142 mmol/L (137-145); Total Bilirubin 0.8 mg/dL (0.2-1.3); Total Protein 7.1 g/dL (6.3-8.2)
[2024-08-24 14:26] LABS: HGB 18.4 g/dL (12.0-15.0); MCH 30.5 pg (27.0-32.0); MCHC 34.1 g/dL (32.0-37.0); MCV 89.4 fL (80.0-97.0); Mean Platelet Volume 11.9 fL (9.5-12.2); Platelet Count 129 10*3/uL (140-440); RBC 6.04 10*6/uL (4.10-5.20); RDW 14.1 % (11.5-14.5); WBC 8.87 10*3/uL (4.50-10.00)
[2024-08-24 14:37] LABS: Glucose 868 mg/dL (74-99)
--- NOTE | 2024-08-24 14:38 | CT ---
EXAMINATION TYPE: CT brain wo con CT DLP: 1127.4 mGycm, Automated exposure control for dose reduction was used. DATE OF EXAM: 08/24/2024 2:16 PM COMPARISON: MR brain 07/25/2024, CT brain 07/21/2024 CLINICAL INDICATION:Female, 59 years old with history of ams, AMS TECHNIQUE: Brain: Multiple axial CT images of the brain were obtained without IV contrast. . Coronal and sagitta l reformats reviewed. FINDINGS: Brain: Extra-axial spaces: No abnormal extra-axial fluid collections. Previously seen right parietal extra-a xial space mass is not well-visualized from prior exam. Ventricular system: Within normal limits Cerebral parenchyma: No acute intraparenchymal hemorrhage. Decreased size of right frontal lobe intra -axial lesion measuring 2.5 cm, and previously measured 3.3 cm. Previously seen vasogenic edema is no t appreciated on today's exam. Hypodense intra-axial lesion within the medial posterior left frontal lobe corresponding to known metastasis is similar in size from prior exam measuring grossly 1.7 cm. T he intra-axial metastasis are not well-visualized and compared to prior enhanced CT brain. The delgadillo-w mine junction is well differentiated. Scattered hypoattenuating areas are seen within the periventric ular white matter. Cerebellum: Unremarkable. Mass effect: No evidence of midline shift. Intracranial vasculature: unremarkable Soft tissues: Decreased size of right parietal calvarium soft tissue lesion now measuring grossly 6.2 x 0.8 cm, previously measured 8.2 x 4.6 cm. Calvarium/osseous structures: No depressed skull fracture. Paranasal sinuses and mastoid air cells: Clear Visualized orbits: Orbital contents are intact. IMPRESSION: 1. No acute intracranial process. 2. Findings suggestive of positive response to disease with decrease in size of right frontal lobe l esion with no definitive surrounding vasogenic edema. Additionally there is markedly decreased size o f right scalp parietal lesion. Previously seen right parietal extra-axial space lesion is no longer d efinitively visualized. Consider further evaluation with MRI. 3. Nonspecific white matter changes, likely secondary to chronic small vessel ischemic disease. [facility], , 08/24/2024 2:36 PM
[2024-08-24 14:58] LABS: Band Neutrophils % 6 %; Lymphocytes # (M) 0.35 k/uL (1.0-4.8); Monocytes # (M) 0.27 k/uL (0-1.0); Neutrophils # (M) 8.24 k/uL (1.3-7.7); Neutrophils % (M) 87 %; Nucleated Red Blood Cells 0 /100 WBC (0-0); Total Cells Counted 100
[2024-08-24 15:03] LABS: Appearance,Urine Clear (Clear); Bilirubin,Urine Negative (Negative); Blood,Urine Trace (Negative); Color,Urine Colorless; Glucose,Urine (UA) 4+ (Negative); Hyaline Casts,Urine 4 /lpf (0-2); Leukocyte Esterase,Urine Negative (Negative); Mucus,Urine Rare /hpf; Nitrite,Urine Negative (Negative); PH, Urine 5.5 (5.0-8.0); Protein,Urine Negative (Negative); RBC,Urine 2 /hpf (0-5); Specific Gravity,Urine 1.028 (1.001-1.035); Urobilinogen,Urine <2.0 mg/dL (<2.0); WBC,Urine 1 /hpf (0-5)
[2024-08-24 15:06] LABS: Ketones,Urine 2+ (Negative)
[2024-08-24 16:17] LABS: INR 0.9 (<1.2); Prothrombin Time 10.5 sec (10.0-12.5)
[2024-08-24 16:24] LABS: Partial Thromboplastin Time 18.6 sec (22.0-30.0)
[2024-08-24 16:41] LABS: Glucose,Whole Blood >600 mg/dL (70-110)
[2024-08-24] MEDS: INSULIN REGULAR 100 UNIT in SODIUM CHLORIDE 0.9% 100 ML IV SCH (16:45)
[2024-08-24] MEDS: INSULIN REGULAR BOLUS (FROM DRIP BAG) IV ONE ×2 (16:45→22:31)
[2024-08-24] MEDS: SODIUM CHLORIDE 0.9% 1,000 ML IV SCH (16:48)
[2024-08-24 16:49] LABS: African American GFR (CKD) 37 (>60 ml/min/1.73 sqM); Anion Gap 26 mmol/L; Blood Urea Nitrogen 58 mg/dL (7-17); Carbon Dioxide 11 mmol/L (22-30); Chloride 108 mmol/L (98-107); Non-African American GFR(CKD) 32 (>60 ml/min/1.73 sqM); Potassium 3.3 mmol/L (3.5-5.1); Sodium 145 mmol/L (137-145)
[2024-08-24 17:04] LABS: Glucose 721 mg/dL (74-99)
[2024-08-24 17:49] LABS: Glucose,Whole Blood >600 mg/dL (70-110)
[2024-08-24 19:08] LABS: Glucose,Whole Blood >600 mg/dL (70-110)
[2024-08-24] MEDS ORDERED: ACETAMINOPHEN TAB 325 MG TAB PO PRN (19:29)
[2024-08-24] MEDS ORDERED: ALBUTEROL NEBULIZED 2.5 MG/3 ML INHALATION PRN (19:29)
[2024-08-24] MEDS ORDERED: ONDANSETRON 4 MG/2 ML VIAL IVP PRN (19:29)
[2024-08-24] MEDS ORDERED: DEXTROSE 50% SYRINGE 50 ML IVP PRN ×2 (19:32)
[2024-08-24] MEDS ORDERED: Potassium Replacement Protocol 1 EACH MISC MISCELLANE PRN (19:32)
[2024-08-24] MEDS ORDERED: Magnesium Replacement Protocol 1 EACH MISC MISCELLANE PRN (19:32)
[2024-08-24] MEDS: SODIUM CHLORIDE 0.9% 1,000 ML IV ONE (20:18)
[2024-08-24 20:22] LABS: Glucose,Whole Blood 428 mg/dL (70-110)
[2024-08-24 20:43] LABS: African American GFR (CKD) 43 (>60 ml/min/1.73 sqM); Anion Gap 26 mmol/L; Blood Urea Nitrogen 64 mg/dL (7-17); Calcium 9.8 mg/dL (8.4-10.2); Carbon Dioxide 13 mmol/L (22-30); Chloride 110 mmol/L (98-107); Glucose 497 mg/dL (74-99); Non-African American GFR(CKD) 37 (>60 ml/min/1.73 sqM); Sodium 149 mmol/L (137-145)
[2024-08-24 20:44] LABS: Potassium 3.4 mmol/L (3.5-5.1)
[2024-08-24 21:22] LABS: Glucose,Whole Blood 377 mg/dL (70-110)
[2024-08-24 22:30] LABS: Glucose,Whole Blood 308 mg/dL (70-110)
[2024-08-24] MEDS: ATORVASTATIN 10 MG TAB PO SCH (22:31)
[2024-08-24] MEDS: levETIRAcetam 500 MG TAB PO SCH (22:32)
[2024-08-24] MEDS: POTASSIUM CHLORIDE 10 MEQ in WATER FOR INJECTION 1 100ML.BAG IVPB SCH (22:32)
[2024-08-24] MEDS: HEPARIN SODIUM,PORCINE 5,000 UNIT/ML 1 ML VIAL SQ SCH (22:33)
[2024-08-24] MEDS ORDERED: levETIRAcetam IV 500 MG in SODIUM CHLORIDE 0.9% 250 ML IVPB SCH (23:15)
[2024-08-24 23:23] LABS: Glucose,Whole Blood 250 mg/dL (70-110)
[2024-08-24] MEDS: D5-0.45% NACL WITH KCL 20MEQ/L 1,000 ML IV SCH (23:30)
[2024-08-25 00:55] LABS: T4, Free (Free Thyroxine) 2.26 ng/dL (0.78-2.19)
[2024-08-25 01:14] LABS: Glucose,Whole Blood 255 mg/dL (70-110)
[2024-08-25] MEDS: POTASSIUM CHLORIDE ER 20 MEQ TAB.ER PO SCH (01:14)
[2024-08-25] MEDS: D5-0.45% NACL WITH KCL 20MEQ/L 1,000 ML IV SCH (01:15)
[2024-08-25] MEDS: levETIRAcetam IV 500 MG/5 ML VIAL IVP SCH (01:50)
[2024-08-25 02:15] LABS: Glucose,Whole Blood 217 mg/dL (70-110)
[2024-08-25 03:01] LABS: Glucose,Whole Blood 175 mg/dL (70-110)
[2024-08-25 05:30] LABS: HCT 52.3 % (37.2-46.3); HGB 17.4 g/dL (12.0-15.0); Immature Platelet Fraction 6.5 % (1.1-6.1); MCH 30.1 pg (27.0-32.0); MCHC 33.3 g/dL (32.0-37.0); MCV 90.5 fL (80.0-97.0); Mean Platelet Volume 10.6 fL (9.5-12.2); Platelet Count 101 10*3/uL (140-440); RBC 5.78 10*6/uL (4.10-5.20); WBC 8.03 10*3/uL (4.50-10.00)
[2024-08-25 05:59] LABS: African American GFR (CKD) 71 (>60 ml/min/1.73 sqM); Anion Gap 16 mmol/L; Blood Urea Nitrogen 55 mg/dL (7-17); Calcium 9.6 mg/dL (8.4-10.2); Carbon Dioxide 19 mmol/L (22-30); Chloride 115 mmol/L (98-107); Glucose 127 mg/dL (74-99); Non-African American GFR(CKD) 62 (>60 ml/min/1.73 sqM); Phosphorus 1.4 mg/dL (2.5-4.5); Potassium 3.7 mmol/L (3.5-5.1); Sodium 150 mmol/L (137-145)
[2024-08-25 06:05] LABS: Glucose,Whole Blood 96 mg/dL (70-110)
[2024-08-25] MEDS ORDERED: LEVOTHYROXINE 112 MCG TAB PO SCH (06:30)
[2024-08-25 06:40] LABS: Glucose,Whole Blood 73 mg/dL (70-110)
--- NOTE | 2024-08-25 06:44 | P.HPIM ---
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 She is a known case of lung cancer and received 4 cycles of chemotherapy. However she developed a nodule in her right parietal scalp about a month ago and she was admitted to the hospital, MRI of the brain showing numerous metastatic lesions into the brain. She was started on dexamethasone and Keppra prophylactically after evaluated by neurologist and discharge. She follow-up with her radiation oncologist Dr. Rene for radiotherapy. Yesterday she was not feeling well and called her Dr. Rene referred her to the emergency room. Patient Poor historian has with slightly confused. Also patient chose not to talk to her sister at bedside who provided most of the information. She received her last dose of radiotherapy about 4 days ago. After that she was sleeping a lot not eating cannot move and very weak so brought her to the hospital. Patient could not provide any symptoms but looks comfortable. Looks somewhat dehydrated and somewhat confused. However she is interactive and she follows command. On admission she was tachycardic with heart rate about 123, blood pressure about 100/80 on admission and saturating 95% 2 L oxygen via nasal cannula EKG showing atrial flutter at a rate of 130, I reviewed the EKG by myself, there is suspicion also being sinus tachycardia. Repeat EKG showing sinus tachycardia Venous pH is low at 7.24 and pCO2 is normal at 37. Lactic acid elevated 4.7 and acetone is positive. TSH is low at 0.04 and high T4 at 2.2. Anion gap was el evated at 37. CT of the brain: showing positive response with decreased size of the right parietal lesion. Review of Systems ROS unobtainable: due to mental status Past Medical History Past Medical History: COPD, Diabetes Mellitus, Hyperlipidemia, Hypertension, Thyroid Disorder Additional Past Medical History / Comment(s): Hypertension new october 2023 while in hospital, pleural effusion, lung cancer History of Any Multi-Drug Resistant Organisms: None Reported Past Surgical History: Appendectomy, Tubal Ligation Additional Past Surgical History / Comment(s): lung biopsy october 2023, Multi thoracentesis Past Anesthesia/Blood Transfusion Reactions: No Reported Reaction Past Psychological History: No Psychological Hx Reported Smoking Status: Former smoker Past Alcohol Use History: None Reported Past Drug Use History: None Reported - Past Family History Mother Family Medical History: Cancer Additional Family Medical History / Comment(s): Lung Medications and Allergies Home Medications Medication Instructions Recorded Confirmed Type Albuterol Inhaler [Ventolin Hfa 1 - 2 puff INHALATION RT-Q6H PRN 11/06/23 08/24/24 History Inhaler] Levothyroxine Sodium [Levoxyl] 112 mcg PO DAILY 06/15/24 08/24/24 History Potassium Chloride ER [K-Dur 20] 20 meq PO W/BRKFST 06/18/24 08/24/24 History Atorvastatin [Lipitor] 10 mg PO HS 07/23/24 08/24/24 History hydroCHLOROthiazide [Hydrodiuril] 25 mg PO DAILY 07/23/24 08/24/24 History levETIRAcetam [Keppra] 500 mg PO Q12HR #60 tab 07/25/24 08/24/24 Rx Ergocalciferol [Vitamin D2 (1250 1,250 mcg PO WEEKLY 08/24/24 08/24/24 History Mcg = 61666 Iu)] Pantoprazole [Protonix] 40 mg PO DAILY 08/24/24 08/24/24 History dexAMETHasone See Taper PO DIRECTED 08/24/24 08/24/24 History metFORMIN HCL ER [Glucophage XR] 500 mg PO BID 08/24/24 08/24/24 History Allergies Allergy/AdvReac Type Severity Reaction Status Date / Time No Known Allergies Allergy Verified 08/24/24 17:13 Physical Exam Vitals: Vital Signs Temp Pulse Resp BP Pulse Ox 08/24/24 20:00 130 H 18 106/64 93 L 08/24/24 19:00 125 H 18 108/72 93 L 08/24/24 18:00 128 H 18 117/84 93 L 08/24/24 17:00 125 H 18 119/89 93 L 08/24/24 16:00 124 H 18 123/93 98 08/24/24 15:00 123 H 20 110/83 96 08/24/24 13:52 122 H 30 H 122/80 98 08/24/24 11:39 97.5 F L 133 H 20 100/80 95 Intake and Output 08/24/24 08/24/24 08/24/24 06:59 14:59 22:59 Intake Total 19.688 Balance 19.688 Intake: Intake, IV Titration 19.688 Amount Insulin Regular 100 unit 19.688 In Sodium Chloride 0.9% 100 ml @ 0.1 UNITS/KG/HR 7.788 mls/hr IV .[id number] [facility] Rx#:[id number] Other: Weight 77.111 kg -GENERAL: The patient is alert and oriented x3, mildly confused, not in any acute distress. Well developed, well nourished. Generally weak -HEENT: Pupils are round and equally reacting to light. EOMI. No scleral icterus. No conjunctival pallor. Normocephalic, atraumatic. No pharyngeal erythema. No thyromegaly. Dehydrated with dry mucous members CARDIOVASCULAR: S1 and S2 present. No murmurs, rubs, or gallops. PULMONARY: Chest is clear to auscultation, no wheezing , no crackles. ABDOMEN: Soft, nontender, nondistended, normoactive bowel sounds. No palpable organomegaly. MUSCULOSKELETAL: No joint swelling or deformity. EXTREMITIES: No cyanosis, clubbing, or pedal edema. NEUROLOGICAL: Gross neurological examination did not reveal any focal deficits. SKIN: No rashes. no petechiae. Results CBC & Chem 7: 08/25/24 05:08 08/25/24 05:08 Labs: Abnormal Lab Results - Last 24 Hours (Table) 08/24/24 08/24/24 08/24/24 Range/Units 13:43 13:51 13:51 RBC 6.04 H (4.10-5.20) 10*6/uL Hgb 18.4 H D (12.0-15.0) g/dL Hct 54.0 H (37.2-46.3) % Plt Count 129 L (140-440) 10*3/uL Immature Gran # 0.11 H (0.00-0.04) 10*3/uL Neutrophils # (Manual) 8.24 H (1.3-7.7) k/uL Lymphocytes # (Manual) 0.35 L (1.0-4.8) k/uL APTT (22.0-30.0) sec VBG pH (7.31-7.41) VBG HCO3 (24-28) mmol/L Sodium (137-145) mmol/L Potassium (3.5-5.1) mmol/L Chloride 95 L (98-107) mmol/L Carbon Dioxide 10 L (22-30) mmol/L BUN 65 H (7-17) mg/dL Creatinine 2.06 H (0.52-1.04) mg/dL Glucose 868 H* (74-99) mg/dL POC Glucose (mg/dL) >600 H* (70-110) mg/dL Plasma Lactic Acid Angel (0.7-2.0) mmol/L Calcium 10.3 H (8.4-10.2) mg/dL Magnesium 3.1 H (1.6-2.3) mg/dL Alkaline Phosphatase 195 H (38-126) U/L Troponin I (0.000-0.034) ng/mL Urine Glucose (UA) (Negative) Urine Ketones (Negative) Urine Blood (Negative) Hyaline Casts (0-2) /lpf Urine Mucus (None) /hpf 08/24/24 08/24/24 08/24/24 Range/Units 13:51 13:51 13:52 RBC (4.10-5.20) 10*6/uL Hgb (12.0-15.0) g/dL Hct (37.2-46.3) % Plt Count (140-440) 10*3/uL Immature Gran # (0.00-0.04) 10*3/uL Neutrophils # (Manual) (1.3-7.7) k/uL Lymphocytes # (Manual) (1.0-4.8) k/uL APTT (22.0-30.0) sec VBG pH 7.24 L (7.31-7.41) VBG HCO3 16 L (24-28) mmol/L Sodium (137-145) mmol/L Potassium (3.5-5.1) mmol/L Chloride (98-107) mmol/L Carbon Dioxide (22-30) mmol/L BUN (7-17) mg/dL Creatinine (0.52-1.04) mg/dL Glucose (74-99) mg/dL POC Glucose (mg/dL) (70-110) mg/dL Plasma Lactic Acid Angel 4.7 H* (0.7-2.0) mmol/L Calcium (8.4-10.2) mg/dL Magnesium (1.6-2.3) mg/dL Alkaline Phosphatase (38-126) U/L Troponin I 0.115 H* (0.000-0.034) ng/mL Urine Glucose (UA) (Negative) Urine Ketones (Negative) Urine Blood (Negative) Hyaline Casts (0-2) /lpf Urine Mucus (None) /hpf 08/24/24 08/24/24 08/24/24 Range/Units 14:43 15:48 15:48 RBC (4.10-5.20) 10*6/uL Hgb (12.0-15.0) g/dL Hct (37.2-46.3) % Plt Count (140-440) 10*3/uL Immature Gran # (0.00-0.04) 10*3/uL Neutrophils # (Manual) (1.3-7.7) k/uL Lymphocytes # (Manual) (1.0-4.8) k/uL APTT 18.6 L (22.0-30.0) sec VBG pH (7.31-7.41) VBG HCO3 (24-28) mmol/L Sodium (137-145) mmol/L Potassium 3.3 L (3.5-5.1) mmol/L Chloride 108 H (98-107) mmol/L Carbon Dioxide 11 L (22-30) mmol/L BUN 58 H (7-17) mg/dL Creatinine 1.70 H (0.52-1.04) mg/dL Glucose 721 H* (74-99) mg/dL POC Glucose (mg/dL) (70-110) mg/dL Plasma Lactic Acid Angel (0.7-2.0) mmol/L Calcium (8.4-10.2) mg/dL Magnesium (1.6-2.3) mg/dL Alkaline Phosphatase (38-126) U/L Troponin I (0.000-0.034) ng/mL Urine Glucose (UA) 4+ H (Negative) Urine Ketones 2+ H (Negative) Urine Blood Trace H (Negative) Hyaline Casts 4 H (0-2) /lpf Urine Mucus Rare H (None) /hpf 08/24/24 08/24/24 08/24/24 Range/Units 15:48 16:39 17:46 RBC (4.10-5.20) 10*6/uL Hgb (12.0-15.0) g/dL Hct (37.2-46.3) % Plt Count (140-440) 10*3/uL Immature Gran # (0.00-0.04) 10*3/uL Neutrophils # (Manual) (1.3-7.7) k/uL Lymphocytes # (Manual) (1.0-4.8) k/uL APTT (22.0-30.0) sec VBG pH (7.31-7.41) VBG HCO3 (24-28) mmol/L Sodium (137-145) mmol/L Potassium (3.5-5.1) mmol/L Chloride (98-107) mmol/L Carbon Dioxide (22-30) mmol/L BUN (7-17) mg/dL Creatinine (0.52-1.04) mg/dL Glucose (74-99) mg/dL POC Glucose (mg/dL) >600 H* >600 H* (70-110) mg/dL Plasma Lactic Acid Angel 3.4 H* (0.7-2.0) mmol/L Calcium (8.4-10.2) mg/dL Magnesium (1.6-2.3) mg/dL Alkaline Phosphatase (38-126) U/L Troponin I (0.000-0.034) ng/mL Urine Glucose (UA) (Negative) Urine Ketones (Negative) Urine Blood (Negative) Hyaline Casts (0-2) /lpf Urine Mucus (None) /hpf 08/24/24 08/24/24 08/24/24 Range/Units 19:06 20:12 20:12 RBC (4.10-5.20) 10*6/uL Hgb (12.0-15.0) g/dL Hct (37.2-46.3) % Plt Count (140-440) 10*3/uL Immature Gran # (0.00-0.04) 10*3/uL Neutrophils # (Manual) (1.3-7.7) k/uL Lymphocytes # (Manual) (1.0-4.8) k/uL APTT (22.0-30.0) sec VBG pH (7.31-7.41) VBG HCO3 (24-28) mmol/L Sodium 149 H (137-145) mmol/L Potassium 3.4 L (3.5-5.1) mmol/L Chloride 110 H (98-107) mmol/L Carbon Dioxide 13 L (22-30) mmol/L BUN 64 H (7-17) mg/dL Creatinine 1.51 H (0.52-1.04) mg/dL Glucose 497 H (74-99) mg/dL POC Glucose (mg/dL) >600 H* (70-110) mg/dL Plasma Lactic Acid Angel 4.9 H* (0.7-2.0) mmol/L Calcium (8.4-10.2) mg/dL Magnesium (1.6-2.3) mg/dL Alkaline Phosphatase (38-126) U/L Troponin I (0.000-0.034) ng/mL Urine Glucose (UA) (Negative) Urine Ketones (Negative) Urine Blood (Negative) Hyaline Casts (0-2) /lpf Urine Mucus (None) /hpf 08/24/24 08/24/24 Range/Units 20:12 20:20 RBC (4.10-5.20) 10*6/uL Hgb (12.0-15.0) g/dL Hct (37.2-46.3) % Plt Count (140-440) 10*3/uL Immature Gran # (0.00-0.04) 10*3/uL Neutrophils # (Manual) (1.3-7.7) k/uL Lymphocytes # (Manual) (1.0-4.8) k/uL APTT (22.0-30.0) sec VBG pH (7.31-7.41) VBG HCO3 (24-28) mmol/L Sodium (137-145) mmol/L Potassium (3.5-5.1) mmol/L Chloride (98-107) mmol/L Carbon Dioxide (22-30) mmol/L BUN (7-17) mg/dL Creatinine (0.52-1.04) mg/dL Glucose (74-99) mg/dL POC Glucose (mg/dL) 428 H (70-110) mg/dL Plasma Lactic Acid Angel (0.7-2.0) mmol/L Calcium (8.4-10.2) mg/dL Magnesium (1.6-2.3) mg/dL Alkaline Phosphatase (38-126) U/L Troponin I 0.136 H* (0.000-0.034) ng/mL Urine Glucose (UA) (Negative) Urine Ketones (Negative) Urine Blood (Negative) Hyaline Casts (0-2) /lpf Urine Mucus (None) /hpf Assessment and Plan Assessment: Diabetic ketoacidosis Diabetes mellitus with hyperglycemia, Small cell cancer of the lung with metastasis to the bone of the skull and brain. Status post chemotherapy and radiotherapy to the brain Acute kidney injury Metabolic acidosis Lactic acidosis Severe dehydration and hypovolemia Metabolic/toxic encephalopathy Sinus tachycardia rather than atrial flutter with elevated troponin. Plan: Continue with insulin drip Continue with IV hydration Adjust her diabetes medication Hold dexamethasone, as brain metastatic lesions responded to radiotherapy. Patient may not need more steroids upon discharge, we will confirm with oncology team Lower the dose of levothyroxine 112 down to 88 because of high T4 and TSH is low. Recheck thyroid function test in 1 to 2 months Nephrology team consult, oncology team consult Labs and medication were reviewed.. Continue same treatment. Continue with symptomatic treatment. Resume home medication. Monitor labs and vitals. DVT and GI prophylaxis. Further recommendations as per clinical course of the patient DVT prophylaxis: Subcutaneous heparin GI Prophylaxis: Pepcid PT/OT: Pending Prognosis is guarded
[2024-08-25 07:10] LABS: Glucose,Whole Blood 83 mg/dL (70-110)
[2024-08-25 07:32] LABS: Glucose,Whole Blood 99 mg/dL (70-110)
--- NOTE | 2024-08-25 07:57 | P.PN ---
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 She is a known case of lung cancer and received 4 cycles of chemotherapy. However she developed a nodule in her right parietal scalp about a month ago and she was admitted to the hospital, MRI of the brain showing numerous metastatic lesions into the brain. She was started on dexamethasone and Keppra prophylactically after evaluated by neurologist and discharge. She follow-up with her radiation oncologist Dr. Rene for radiotherapy. Yesterday she was not feeling well and called her Dr. Rene referred her to the emergency room. Patient Poor historian has with slightly confused. Also patient chose not to talk to her sister at bedside who provided most of the information. She received her last dose of radiotherapy about 4 days ago. After that she was sleeping a lot not eating cannot move and very weak so brought her to the hospital. Patient could not provide any symptoms but looks comfortable. Looks somewhat dehydrated and somewhat confused. However she is interactive and she follows command. On admission she was tachycardic with heart rate about 123, blood pressure about 100/80 on admission and saturating 95% 2 L oxygen via nasal cannula EKG showing atrial flutter at a rate of 130, I reviewed the EKG by myself, there is suspicion also being sinus tachycardia. Repeat EKG showing sinus tachycardia Venous pH is low at 7.24 and pCO2 is normal at 37. Lactic acid elevated 4.7 and acetone is positive. TSH is low at 0.04 and high T4 at 2.2. Anion gap was elevated at 37. CT of the brain: showing positive response with decreased size of the right parietal lesion. 08/25 Patient remains confused and more lethargic and sleepy today, she is agitated at 6 sleep and kicking her legs, currently more calm but sitter is placed at bedside for safety. No family member. Patient does not wake up to verbal or tactile stimuli. Pupils are equal and reactive to light. Meningeal signs are absent. Patient remains relatively hypotensive with blood pressure 108/84 and tachycardic with heart rate 125-130, basal blood pressure with systolic reading 140-150 about 1 month ago. Sodium increased to 150 which might contribute to her altered mental status although her creatinine improved down to 0.9. With relative hypotension and hypernatremia we will give a bolus of normal saline 1 L at this relatively hypotonic to serum osmolality. Patient remains on insulin drip, anion gap is decreasing but not completely closed, anion gap down from 37 down to 16. Glucose is controlled. Hemoglobin 17.4. Platelet count 101. No leukocytosis. No acute patient is high 7.3 Patient is on the same treatment. Also she is on Keppra prophylactically secondary to her brain metastasis. Recent CAT scan showing decrease in brain lesions. Patient completed dexamethasone which might contributed to her hyperglycemia because of improvement in her brain lesion, will discuss with oncology team Also TSH dose lowered from 112 daily to 88, because TSH is low 0.04 and high T4 at 2.2. Acute blood UIQ elevated glucose. Dyspnea. Echocardiogram is ordered Active Medications Generic Name Dose Route Start Last Admin Trade Name Freq PRN Reason Stop Dose Admin Acetaminophen 650 mg 08/24/24 19:29 Acetaminophen Tab 325 Mg Tab PO Q6HR PRN Fever and/ or Pain Albuterol Sulfate 2.5 mg 08/24/24 19:29 Albuterol Nebulized 2.5 Mg/3 Ml INHALATION RT-Q6H PRN Wheezing Atorvastatin Calcium 10 mg 08/24/24 21:00 08/24/24 22:31 Atorvastatin 10 Mg Tab PO Not Given HS ENEIDA Dextrose/Water 25 ml 08/24/24 19:32 Dextrose 50% Syringe 50 Ml IVP PER PROTOCOL PRN Hypoglycemia Protocol Dextrose/Water 50 ml 08/24/24 19:32 Dextrose 50% Syringe 50 Ml IVP PER PROTOCOL PRN Hypoglycemia Protocol Ergocalciferol 1,250 mcg 08/31/24 09:00 Ergocalciferol 1,250 Mcg (50,000 Iu) Capsule PO WEEKLY ENEIDA Heparin Sodium (Porcine) 5,000 unit 08/24/24 21:15 08/24/24 22:33 Heparin Sodium,Porcine 5,000 Unit/Ml 1 Ml Vial SQ 5,000 unit Q12HR ENEIDA Administration Insulin Human Regular 100 unit 101 mls @ 7.788 mls/hr 08/24/24 16:30 08/25/24 06:00 / Sodium Chloride IV 0 units/kg/hr .[id number] ENEIDA 0 mls/hr Titration Protocol 0.1 UNITS/KG/HR Dextrose/Water 1,000 mls @ 75 mls/hr 08/25/24 06:23 Dextrose 5%-Water Iv Soln IV 08/25/24 19:42 .[id number] ONE Sodium Chloride 1,000 mls @ 999 mls/hr 08/25/24 07:50 Saline 0.9% IV 08/25/24 08:50 .[id number] ONE Levetiracetam 500 mg 08/24/24 23:15 08/25/24 01:50 Levetiracetam Iv 500 Mg/5 Ml Vial IVP 500 mg Q12H [facility] Administration Levothyroxine Sodium 88 mcg 08/25/24 06:30 Levothyroxine 88 Mcg Tab PO DAILY@0630 [facility] Miscellaneous Information 1 each 08/24/24 19:32 Magnesium Replacement Protocol 1 Each Misc MISCELLANE DAILY PRN Per Protocol Protocol Miscellaneous Information 1 each 08/24/24 19:32 Potassium Replacement Protocol 1 Each Misc MISCELLANE DAILY PRN Per Protocol Ondansetron HCl 4 mg 08/24/24 19:29 Ondansetron 4 Mg/2 Ml Vial IVP Q6HR PRN Nausea And Vomiting Pantoprazole Sodium 40 mg 08/25/24 09:00 Pantoprazole 40 Mg/10 Ml Vial IVP DAILY [facility] Objective - Vital Signs Vital signs: Vital Signs Temp 97.4 F L 08/25/24 01:00 Pulse 126 H 08/25/24 06:00 Resp 20 08/25/24 06:00 BP 108/84 08/25/24 06:00 Pulse Ox 94 L 08/25/24 06:00 FiO2 Intake & Output 08/24/24 08/25/24 08/25/24 18:59 06:59 18:59 Intake Total 8.567 122.443 Output Total 1000 Balance 8.567 -877.557 Weight 77.111 kg Intake: Intake, IV Titration 8.567 122.443 Amount Insulin Regular 100 unit 8.567 122.443 In Sodium Chloride 0.9% 100 ml @ 0.1 UNITS/KG/HR 7.788 mls/hr IV .[id number] [facility] Rx#:[id number] Output: Urine 1000 Uretheral (Francois) 1000 - Exam -GENERAL: The patient is obtunded, nonverbal not in any acute distress. Well developed, well nourished. HEENT: Pupils are round and equally reacting to light. EOMI. No scleral icterus. No conjunctival pallor. Normocephalic, atraumatic. No pharyngeal erythema. No thyromegaly. CARDIOVASCULAR: S1 and S2 present. No murmurs, rubs, or gallops. PULMONARY: Chest is clear to auscultation, no wheezing , no crackles. ABDOMEN: Soft, nontender, nondistended, normoactive bowel sounds. No palpable organomegaly. MUSCULOSKELETAL: No joint swelling or deformity. EXTREMITIES: No cyanosis, clubbing, or pedal edema. NEUROLOGICAL: Gross neurological examination did not reveal any focal deficits. SKIN: No rashes. no petechiae. - Labs CBC & Chem 7: 08/25/24 05:08 08/25/24 05:08 Labs: Abnormal Lab Results - Last 24 Hours (Table) 08/24/24 08/24/24 08/24/24 Range/Units 13:43 13:51 13:51 RBC 6.04 H (4.10-5.20) 10*6/uL Hgb 18.4 H D (12.0-15.0) g/dL Hct 54.0 H (37.2-46.3) % Plt Count 129 L (140-440) 10*3/uL Immature Gran # 0.11 H (0.00-0.04) 10*3/uL Neutrophils # (Manual) 8.24 H (1.3-7.7) k/uL Lymphocytes # (Manual) 0.35 L (1.0-4.8) k/uL Immature Plt Fraction (1.1-6.1) % APTT (22.0-30.0) sec VBG pH (7.31-7.41) VBG HCO3 (24-28) mmol/L Sodium (137-145) mmol/L Potassium (3.5-5.1) mmol/L Chloride 95 L (98-107) mmol/L Carbon Dioxide 10 L (22-30) mmol/L BUN 65 H (7-17) mg/dL Creatinine 2.06 H (0.52-1.04) mg/dL Glucose 868 H* (74-99) mg/dL POC Glucose (mg/dL) >600 H* (70-110) mg/dL Plasma Lactic Acid Angel (0.7-2.0) mmol/L Calcium 10.3 H (8.4-10.2) mg/dL Phosphorus (2.5-4.5) mg/dL Magnesium 3.1 H (1.6-2.3) mg/dL Alkaline Phosphatase 195 H (38-126) U/L Troponin I (0.000-0.034) ng/mL TSH (0.465-4.680) mIU/L Free T4 (0.78-2.19) ng/dL Urine Glucose (UA) (Negative) Urine Ketones (Negative) Urine Blood (Negative) Hyaline Casts (0-2) /lpf Urine Mucus (None) /hpf 08/24/24 08/24/24 08/24/24 Range/Units 13:51 13:51 13:52 RBC (4.10-5.20) 10*6/uL Hgb (12.0-15.0) g/dL Hct (37.2-46.3) % Plt Count (140-440) 10*3/uL Immature Gran # (0.00-0.04) 10*3/uL Neutrophils # (Manual) (1.3-7.7) k/uL Lymphocytes # (Manual) (1.0-4.8) k/uL Immature Plt Fraction (1.1-6.1) % APTT (22.0-30.0) sec VBG pH 7.24 L (7.31-7.41) VBG HCO3 16 L (24-28) mmol/L Sodium (137-145) mmol/L Potassium (3.5-5.1) mmol/L Chloride (98-107) mmol/L Carbon Dioxide (22-30) mmol/L BUN (7-17) mg/dL Creatinine (0.52-1.04) mg/dL Glucose (74-99) mg/dL POC Glucose (mg/dL) (70-110) mg/dL Plasma Lactic Acid Angel 4.7 H* (0.7-2.0) mmol/L Calcium (8.4-10.2) mg/dL Phosphorus (2.5-4.5) mg/dL Magnesium (1.6-2.3) mg/dL Alkaline Phosphatase (38-126) U/L Troponin I 0.115 H* (0.000-0.034) ng/mL TSH (0.465-4.680) mIU/L Free T4 (0.78-2.19) ng/dL Urine Glucose (UA) (Negative) Urine Ketones (Negative) Urine Blood (Negative) Hyaline Casts (0-2) /lpf Urine Mucus (None) /hpf 08/24/24 08/24/24 08/24/24 Range/Units 14:43 15:48 15:48 RBC (4.10-5.20) 10*6/uL Hgb (12.0-15.0) g/dL Hct (37.2-46.3) % Plt Count (140-440) 10*3/uL Immature Gran # (0.00-0.04) 10*3/uL Neutrophils # (Manual) (1.3-7.7) k/uL Lymphocytes # (Manual) (1.0-4.8) k/uL Immature Plt Fraction (1.1-6.1) % APTT 18.6 L (22.0-30.0) sec VBG pH (7.31-7.41) VBG HCO3 (24-28) mmol/L Sodium (137-145) mmol/L Potassium 3.3 L (3.5-5.1) mmol/L Chloride 108 H (98-107) mmol/L Carbon Dioxide 11 L (22-30) mmol/L BUN 58 H (7-17) mg/dL Creatinine 1.70 H (0.52-1.04) mg/dL Glucose 721 H* (74-99) mg/dL POC Glucose (mg/dL) (70-110) mg/dL Plasma Lactic Acid Angel (0.7-2.0) mmol/L Calcium (8.4-10.2) mg/dL Phosphorus (2.5-4.5) mg/dL Magnesium (1.6-2.3) mg/dL Alkaline Phosphatase (38-126) U/L Troponin I (0.000-0.034) ng/mL TSH (0.465-4.680) mIU/L Free T4 (0.78-2.19) ng/dL Urine Glucose (UA) 4+ H (Negative) Urine Ketones 2+ H (Negative) Urine Blood Trace H (Negative) Hyaline Casts 4 H (0-2) /lpf Urine Mucus Rare H (None) /hpf 08/24/24 08/24/24 08/24/24 Range/Units 15:48 16:39 17:46 RBC (4.10-5.20) 10*6/uL Hgb (12.0-15.0) g/dL Hct (37.2-46.3) % Plt Count (140-440) 10*3/uL Immature Gran # (0.00-0.04) 10*3/uL Neutrophils # (Manual) (1.3-7.7) k/uL Lymphocytes # (Manual) (1.0-4.8) k/uL Immature Plt Fraction (1.1-6.1) % APTT (22.0-30.0) sec VBG pH (7.31-7.41) VBG HCO3 (24-28) mmol/L Sodium (137-145) mmol/L Potassium (3.5-5.1) mmol/L Chloride (98-107) mmol/L Carbon Dioxide (22-30) mmol/L BUN (7-17) mg/dL Creatinine (0.52-1.04) mg/dL Glucose (74-99) mg/dL POC Glucose (mg/dL) >600 H* >600 H* (70-110) mg/dL Plasma Lactic Acid Angel 3.4 H* (0.7-2.0) mmol/L Calcium (8.4-10.2) mg/dL Phosphorus (2.5-4.5) mg/dL Magnesium (1.6-2.3) mg/dL Alkaline Phosphatase (38-126) U/L Troponin I (0.000-0.034) ng/mL TSH (0.465-4.680) mIU/L Free T4 (0.78-2.19) ng/dL Urine Glucose (UA) (Negative) Urine Ketones (Negative) Urine Blood (Negative) Hyaline Casts (0-2) /lpf Urine Mucus (None) /hpf 08/24/24 08/24/24 08/24/24 Range/Units 19:06 20:12 20:12 RBC (4.10-5.20) 10*6/uL Hgb (12.0-15.0) g/dL Hct (37.2-46.3) % Plt Count (140-440) 10*3/uL Immature Gran # (0.00-0.04) 10*3/uL Neutrophils # (Manual) (1.3-7.7) k/uL Lymphocytes # (Manual) (1.0-4.8) k/uL Immature Plt Fraction (1.1-6.1) % APTT (22.0-30.0) sec VBG pH (7.31-7.41) VBG HCO3 (24-28) mmol/L Sodium 149 H (137-145) mmol/L Potassium 3.4 L (3.5-5.1) mmol/L Chloride 110 H (98-107) mmol/L Carbon Dioxide 13 L (22-30) mmol/L BUN 64 H (7-17) mg/dL Creatinine 1.51 H (0.52-1.04) mg/dL Glucose 497 H (74-99) mg/dL POC Glucose (mg/dL) >600 H* (70-110) mg/dL Plasma Lactic Acid Angel 4.9 H* (0.7-2.0) mmol/L Calcium (8.4-10.2) mg/dL Phosphorus (2.5-4.5) mg/dL Magnesium (1.6-2.3) mg/dL Alkaline Phosphatase (38-126) U/L Troponin I (0.000-0.034) ng/mL TSH (0.465-4.680) mIU/L Free T4 (0.78-2.19) ng/dL Urine Glucose (UA) (Negative) Urine Ketones (Negative) Urine Blood (Negative) Hyaline Casts (0-2) /lpf Urine Mucus (None) /hpf 08/24/24 08/24/24 08/24/24 Range/Units 20:12 20:12 20:20 RBC (4.10-5.20) 10*6/uL Hgb (12.0-15.0) g/dL Hct (37.2-46.3) % Plt Count (140-440) 10*3/uL Immature Gran # (0.00-0.04) 10*3/uL Neutrophils # (Manual) (1.3-7.7) k/uL Lymphocytes # (Manual) (1.0-4.8) k/uL Immature Plt Fraction (1.1-6.1) % APTT (22.0-30.0) sec VBG pH (7.31-7.41) VBG HCO3 (24-28) mmol/L Sodium (137-145) mmol/L Potassium (3.5-5.1) mmol/L Chloride (98-107) mmol/L Carbon Dioxide (22-30) mmol/L BUN (7-17) mg/dL Creatinine (0.52-1.04) mg/dL Glucose (74-99) mg/dL POC Glucose (mg/dL) 428 H (70-110) mg/dL Plasma Lactic Acid Angel (0.7-2.0) mmol/L Calcium (8.4-10.2) mg/dL Phosphorus (2.5-4.5) mg/dL Magnesium (1.6-2.3) mg/dL Alkaline Phosphatase (38-126) U/L Troponin I 0.136 H* (0.000-0.034) ng/mL TSH 0.041 L (0.465-4.680) mIU/L Free T4 2.26 H (0.78-2.19) ng/dL Urine Glucose (UA) (Negative) Urine Ketones (Negative) Urine Blood (Negative) Hyaline Casts (0-2) /lpf Urine Mucus (None) /hpf 08/24/24 08/24/24 08/24/24 Range/Units 21:21 22:28 23:21 RBC (4.10-5.20) 10*6/uL Hgb (12.0-15.0) g/dL Hct (37.2-46.3) % Plt Count (140-440) 10*3/uL Immature Gran # (0.00-0.04) 10*3/uL Neutrophils # (Manual) (1.3-7.7) k/uL Lymphocytes # (Manual) (1.0-4.8) k/uL Immature Plt Fraction (1.1-6.1) % APTT (22.0-30.0) sec VBG pH (7.31-7.41) VBG HCO3 (24-28) mmol/L Sodium (137-145) mmol/L Potassium (3.5-5.1) mmol/L Chloride (98-107) mmol/L Carbon Dioxide (22-30) mmol/L BUN (7-17) mg/dL Creatinine (0.52-1.04) mg/dL Glucose (74-99) mg/dL POC Glucose (mg/dL) 377 H 308 H 250 H (70-110) mg/dL Plasma Lactic Acid Angel (0.7-2.0) mmol/L Calcium (8.4-10.2) mg/dL Phosphorus (2.5-4.5) mg/dL Magnesium (1.6-2.3) mg/dL Alkaline Phosphatase (38-126) U/L Troponin I (0.000-0.034) ng/mL TSH (0.465-4.680) mIU/L Free T4 (0.78-2.19) ng/dL Urine Glucose (UA) (Negative) Urine Ketones (Negative) Urine Blood (Negative) Hyaline Casts (0-2) /lpf Urine Mucus (None) /hpf 08/25/24 08/25/24 08/25/24 Range/Units 01:06 02:14 02:59 RBC (4.10-5.20) 10*6/uL Hgb (12.0-15.0) g/dL Hct (37.2-46.3) % Plt Count (140-440) 10*3/uL Immature Gran # (0.00-0.04) 10*3/uL Neutrophils # (Manual) (1.3-7.7) k/uL Lymphocytes # (Manual) (1.0-4.8) k/uL Immature Plt Fraction (1.1-6.1) % APTT (22.0-30.0) sec VBG pH (7.31-7.41) VBG HCO3 (24-28) mmol/L Sodium (137-145) mmol/L Potassium (3.5-5.1) mmol/L Chloride (98-107) mmol/L Carbon Dioxide (22-30) mmol/L BUN (7-17) mg/dL Creatinine (0.52-1.04) mg/dL Glucose (74-99) mg/dL POC Glucose (mg/dL) 255 H 217 H 175 H (70-110) mg/dL Plasma Lactic Acid Angel (0.7-2.0) mmol/L Calcium (8.4-10.2) mg/dL Phosphorus (2.5-4.5) mg/dL Magnesium (1.6-2.3) mg/dL Alkaline Phosphatase (38-126) U/L Troponin I (0.000-0.034) ng/mL TSH (0.465-4.680) mIU/L Free T4 (0.78-2.19) ng/dL Urine Glucose (UA) (Negative) Urine Ketones (Negative) Urine Blood (Negative) Hyaline Casts (0-2) /lpf Urine Mucus (None) /hpf 08/25/24 08/25/24 08/25/24 Range/Units 05:08 05:08 05:08 RBC 5.78 H (4.10-5.20) 10*6/uL Hgb 17.4 H (12.0-15.0) g/dL Hct 52.3 H (37.2-46.3) % Plt Count 101 L (140-440) 10*3/uL Immature Gran # 0.13 H (0.00-0.04) 10*3/uL Neutrophils # (Manual) (1.3-7.7) k/uL Lymphocytes # (Manual) (1.0-4.8) k/uL Immature Plt Fraction 6.5 H (1.1-6.1) % APTT (22.0-30.0) sec VBG pH (7.31-7.41) VBG HCO3 (24-28) mmol/L Sodium 150 H (137-145) mmol/L Potassium (3.5-5.1) mmol/L Chloride 115 H (98-107) mmol/L Carbon Dioxide 19 L (22-30) mmol/L BUN 55 H (7-17) mg/dL Creatinine (0.52-1.04) mg/dL Glucose 127 H (74-99) mg/dL POC Glucose (mg/dL) (70-110) mg/dL Plasma Lactic Acid Angel 7.3 H* (0.7-2.0) mmol/L Calcium (8.4-10.2) mg/dL Phosphorus 1.4 L (2.5-4.5) mg/dL Magnesium (1.6-2.3) mg/dL Alkaline Phosphatase (38-126) U/L Troponin I (0.000-0.034) ng/mL TSH (0.465-4.680) mIU/L Free T4 (0.78-2.19) ng/dL Urine Glucose (UA) (Negative) Urine Ketones (Negative) Urine Blood (Negative) Hyaline Casts (0-2) /lpf Urine Mucus (None) /hpf Assessment and Plan Assessment: Diabetic ketoacidosis Diabetes mellitus with hyperglycemia, Small cell cancer of the lung with metastasis to the bone of the skull and brain. Status post chemotherapy and radiotherapy to the brain. CT of the brain on admission showing decrease brain lesions Toxic/metabolic encephalopathy Hypernatremia Acute kidney injury. Resolved Metabolic acidosis Lactic acidosis Severe dehydration and hypovolemia Sinus tachycardia rather than atrial flutter with elevated troponin. Plan: Continue sitter at bedside Continue with insulin drip Continue with IV hydration. Give loss of normal saline 1 L Monitor sodium and glucose Adjust her diabetes medication Hold dexamethasone, as brain metastatic lesions responded to radiotherapy. Patient may not need more steroids upon discharge, we will confirm with oncology team Lower the dose of levothyroxine 112 down to 88 because of high T4 and TSH is low. Recheck thyroid function test in 1 to 2 months Nephrology team consult, oncology team consult Labs and medication were reviewed.. Continue same treatment. Continue with symptomatic treatment. Resume home medication. Monitor labs and vitals. DVT and GI prophylaxis. Further recommendations as per clinical course of the patient DVT prophylaxis: Subcutaneous heparin GI Prophylaxis: Pepcid PT/OT: Pending Prognosis is guarded
[2024-08-25] MEDS: DEXTROSE 5% IN WATER 1,000 ML IV ONE (08:16)
[2024-08-25 08:29] LABS: African American GFR (CKD) 75 (>60 ml/min/1.73 sqM); Anion Gap 10 mmol/L; Blood Urea Nitrogen 54 mg/dL (7-17); Carbon Dioxide 23 mmol/L (22-30); Chloride 116 mmol/L (98-107); Glucose 109 mg/dL (74-99); Non-African American GFR(CKD) 65 (>60 ml/min/1.73 sqM); Sodium 149 mmol/L (137-145)
[2024-08-25 08:45] LABS: Band Neutrophils % 31 %; Lymphocytes # (M) 0.32 k/uL (1.0-4.8); Monocytes # (M) 0.48 k/uL (0-1.0); Neutrophils # (M) 7.22 k/uL (1.3-7.7); Neutrophils % (M) 59 %; Nucleated Red Blood Cells 0 /100 WBC (0-0); Total Cells Counted 100
[2024-08-25] MEDS: LEVOTHYROXINE 88 MCG TAB PO SCH (08:48)
[2024-08-25] MEDS: PANTOPRAZOLE 40 MG/10 ML VIAL IVP SCH (08:50)
[2024-08-25 08:58] LABS: Glucose,Whole Blood 172 mg/dL (70-110)
[2024-08-25] MEDS ORDERED: PANTOPRAZOLE 40 MG TABLET PO SCH (09:00)
[2024-08-25 10:01] LABS: Glucose,Whole Blood 191 mg/dL (70-110)
[2024-08-25 11:12] LABS: Glucose,Whole Blood 169 mg/dL (70-110)
[2024-08-25] MEDS: SODIUM CHLORIDE 0.9% 1,000 ML IV ONE (11:17)
--- NOTE | 2024-08-25 12:00 | P.NPCON ---
History of Present Illness - Reason for Consult acute renal failure, hypernatremia - History of Present Illness Patient is a 59-year-old female with history of metastatic small cell lung cancer with mets to the brain. Maintained on chemotherapy as outpatient. Patient is brought into the hospital due to altered mentation and increased fatigue. Family states that patient has been sleeping most of the time. She has not been eating or drinking much as well. She was noted to be in DKA with serum glucose at 868. Patient has been maintained on insulin drip and D5.45. IV fluids now changed to D5W. Blood sugars have improved with last reading at 191 Blood pressure has been low with systolic noted in the 80s. Currently receiving fluid bolus Serum sodium was initially 142 and increased to 149 and 150. Patient remains lethargic and is not communicating much at all Past Medical History Past Medical History: COPD, Diabetes Mellitus, Hyperlipidemia, Hypertension, Thyroid Disorder Additional Past Medical History / Comment(s): Hypertension new october 2023 while in hospital, pleural effusion, lung cancer History of Any Multi-Drug Resistant Organisms: None Reported Past Surgical History: Appendectomy, Tubal Ligation Additional Past Surgical History / Comment(s): lung biopsy october 2023, Multi thoracentesis Past Anesthesia/Blood Transfusion Reactions: No Reported Reaction Past Psychological History: No Psychological Hx Reported Smoking Status: Former smoker Past Alcohol Use History: None Reported Past Drug Use History: None Reported - Past Family History Mother Family Medical History: Cancer Additional Family Medical History / Comment(s): Lung Medications and Allergies Home Medications Medication Instructions Recorded Confirmed Type Albuterol Inhaler [Ventolin Hfa 1 - 2 puff INHALATION RT-Q6H PRN 11/06/23 08/24/24 History Inhaler] Levothyroxine Sodium [Levoxyl] 112 mcg PO DAILY 06/15/24 08/24/24 History Potassium Chloride ER [K-Dur 20] 20 meq PO W/BRKFST 06/18/24 08/24/24 History Atorvastatin [Lipitor] 10 mg PO HS 07/23/24 08/24/24 History hydroCHLOROthiazide [Hydrodiuril] 25 mg PO DAILY 07/23/24 08/24/24 History levETIRAcetam [Keppra] 500 mg PO Q12HR #60 tab 07/25/24 08/24/24 Rx Ergocalciferol [Vitamin D2 (1250 1,250 mcg PO WEEKLY 08/24/24 08/24/24 History Mcg = [id number] Iu)] Pantoprazole [Protonix] 40 mg PO DAILY 08/24/24 08/24/24 History dexAMETHasone See Taper PO DIRECTED 08/24/24 08/24/24 History metFORMIN HCL ER [Glucophage XR] 500 mg PO BID 08/24/24 08/24/24 History Allergies Allergy/AdvReac Type Severity Reaction Status Date / Time No Known Allergies Allergy Verified 08/24/24 17:13 Physical Exam Vitals: Vital Signs Temp Pulse Resp BP Pulse Ox 08/25/24 11:30 31 L 22 99/63 96 08/25/24 11:25 100.4 F H 133 H 22 90/57 96 08/25/24 10:24 138 H 22 81/52 08/25/24 10:03 137 H 22 101/90 92 L 08/25/24 08:56 92 L 08/25/24 08:52 98.4 F 129 H 22 107/74 90 L 08/25/24 08:05 94 L 08/25/24 06:00 126 H 20 108/84 94 L 08/25/24 04:30 118 H 20 107/74 94 L 08/25/24 03:00 122 H 30 H 99/63 94 L 08/25/24 02:29 32 H 08/25/24 02:15 120 H 19 97/70 96 08/25/24 01:00 97.4 F L 121 H 19 97/71 94 L 08/24/24 23:13 98.1 F 121 H 19 91/57 94 L 08/24/24 22:00 120 H 18 95/64 95 08/24/24 21:00 120 H 18 89/54 95 08/24/24 20:00 130 H 18 106/64 93 L 08/24/24 19:00 125 H 18 108/72 93 L 08/24/24 18:00 128 H 18 117/84 93 L 08/24/24 17:00 125 H 18 119/89 93 L 08/24/24 16:00 124 H 18 123/93 98 08/24/24 15:00 123 H 20 110/83 96 08/24/24 13:52 122 H 30 H 122/80 98 Intake and Output 08/24/24 08/25/24 08/25/24 22:59 06:59 14:59 Intake Total 19.688 111.322 0 Output Total 1000 290 Balance 19.688 -888.678 -290 Intake: Intake, IV Titration 19.688 111.322 0 Amount Insulin Regular 100 unit 19.688 111.322 0 In Sodium Chloride 0.9% 100 ml @ 0.1 UNITS/KG/HR 7.788 mls/hr IV .[id number] [facility] Rx#:[id number] Output: Urine 1000 290 Uretheral (Francois) 1000 290 Patient is sleeping, barely arousable Examination of the heart S1 and S2 Examination of the lungs bilateral breath sounds are heard Abdomen is soft nontender Examination of lower extremity shows no evidence of edema Patient does not communicate much Results - Lab Results Most recent lab results Calcium 9.0 mg/dL (8.4-10.2) 08/25/24 07:36 Phosphorus 1.4 mg/dL (2.5-4.5) L 08/25/24 05:08 Magnesium 3.1 mg/dL (1.6-2.3) H 08/24/24 13:51 08/25/24 05:08 08/25/24 07:36 Assessment and Plan Assessment: 1. Hypernatremia associated with free water deficit. IV fluids switched to D5W. Patient is not able to tolerate p.o. intake 2. DKA maintained on insulin drip 3. History of metastatic small cell lung cancer with brain metastasis 4. Hypotension rule out underlying infection. Lactic acid elevated at 5.1 5. Lactic acidosis 6. Mental status changes secondary to electrolyte disturbance, volume depletion. Patient has underlying history of brain metastasis 7. Hypophosphatemia associated with correction of DKA and decreased oral intake Plan: Agree with D5W. May continue to use insulin to control blood sugars Repeat sodium later on this afternoon Replace phosphorus
[2024-08-25 12:20] LABS: Glucose,Whole Blood 126 mg/dL (70-110)
[2024-08-25 12:23] LABS: African American GFR (CKD) 59 (>60 ml/min/1.73 sqM); Anion Gap 12 mmol/L; Blood Urea Nitrogen 54 mg/dL (7-17); Carbon Dioxide 21 mmol/L (22-30); Chloride 116 mmol/L (98-107); Glucose 178 mg/dL (74-99); Non-African American GFR(CKD) 52 (>60 ml/min/1.73 sqM); Sodium 149 mmol/L (137-145)
[2024-08-25] MEDS: POTASSIUM PHOSPHATE 10 MMOL in SODIUM CHLORIDE 0.9% 250 ML IV ONE (12:35)
[2024-08-25 13:07] LABS: Phosphorus 1.5 mg/dL (2.5-4.5)
[2024-08-25] MEDS: DEXAMETHASONE SOD PHOSPHATE 4 MG/ML 1 ML VIAL IVP SCH (13:10)
[2024-08-25 13:16] LABS: Magnesium 2.3 mg/dL (1.6-2.3)
[2024-08-25 13:50] LABS: Glucose,Whole Blood 126 mg/dL (70-110)
[2024-08-25 15:14] LABS: Glucose,Whole Blood 104 mg/dL (70-110)
[2024-08-25 16:04] LABS: Glucose,Whole Blood 78 mg/dL (70-110)
[2024-08-25] MEDS ORDERED: VANCOMYCIN IV PER PHARMACY 1 EACH MISC MISCELLANE PRN (16:06)
[2024-08-25] MEDS: LACTATED RINGERS 1,000 ML IV ONE (16:31)
[2024-08-25 16:40] LABS: African American GFR (CKD) 69 (>60 ml/min/1.73 sqM); Anion Gap 11 mmol/L; Blood Urea Nitrogen 52 mg/dL (7-17); Carbon Dioxide 20 mmol/L (22-30); Chloride 117 mmol/L (98-107); Non-African American GFR(CKD) 60 (>60 ml/min/1.73 sqM); Sodium 148 mmol/L (137-145)
[2024-08-25 16:45] LABS: Glucose 132 mg/dL (74-99); Potassium 5.7 mmol/L (3.5-5.1)
[2024-08-25 16:58] LABS: Influenza A Not Detected (Not Detectd); Influenza B Not Detected (Not Detectd); RSV Not Detected (Not Detectd)
[2024-08-25] MEDS: CEFEPIME 2 GM in SODIUM CHLORIDE 0.9% 100 ML IVPB SCH (17:06)
[2024-08-25] MEDS: ACETAMINOPHEN IV (For NPO) 1,000 MG in EMPTY BAG 1 BAG IVPB STA (17:12)
[2024-08-25] MEDS ORDERED: LORazepam 1 MG/0.5 ML VIAL IV PRN (17:52)
[2024-08-25 17:54] LABS: Glucose,Whole Blood 155 mg/dL (70-110)
[2024-08-25] MEDS: VANCOMYCIN 1,500 MG in SODIUM CHLORIDE 0.9% 500 ML 500 ML IVPB SCH (17:59)
[2024-08-25] MEDS ORDERED: SCOPOLAMINE 1 MG/72 HR PATCH TRANSDERM SCH (18:00)
[2024-08-25 18:30] LABS: Appearance,Urine Turbid (Clear); Bacteria,Urine Rare /hpf; Bilirubin,Urine Negative (Negative); Blood,Urine Moderate (Negative); Color,Urine Light Red; Glucose,Urine (UA) 1+ (Negative); Hyaline Casts,Urine 1 /lpf (0-2); Ketones,Urine Trace (Negative); Leukocyte Esterase,Urine Negative (Negative); Mucus,Urine Occasional /hpf; Nitrite,Urine Negative (Negative); Protein,Urine 1+ (Negative); RBC,Urine 3 /hpf (0-5); Specific Gravity,Urine 1.026 (1.001-1.035); Squamous Epithelial Cell,Urine <1 /hpf (0-4); WBC,Urine 3 /hpf (0-5)
[2024-08-25] MEDS: MORPHINE SULFATE 4 MG/ML SYRINGE IVP PRN (18:42)
[2024-08-25] MEDS: SCOPOLAMINE 1 MG/72 HR PATCH TRANSDERM SCH (18:44)
[2024-08-25 18:49] VITALS: BP 74/51; PULSE 102; TEMP 99
--- NOTE | 2024-08-25 20:00 | P.CONS ---
History of Present Illness - Reason for Consult Consult date: 08/25/24 cancer care Requesting physician: Carl Griffith - Chief Complaint AMS - History of Present Illness Ms. 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 She was found to have intracranial metastases during recent admit, and has since followed up with rad onc and has began brain XRT. She is currently on decadron 2mg BID. Pt presented with confusion over the least 3 d ays. Upon admit patient was admitted for DKA, upon admit blood glucose noted 868. Patient has no history of previous history of diabetes. Lactic acid elevated at 4.9. Creatinine 2.06, GFR 25. Kidney function has shown improvement, today 1.51, GFR 37. WBC 8.0, hemoglobin 17.4, platelets 21,000. Troponins elevated. UA negative for UTI. Patient is currently on a insulin drip and blood glucose has improved, today 191. Upon admit chest x-ray showed interval development of nodularity or infiltrates. Possible atypical pneumonia. CT brain without contrast showing no acute intracranial processes. Findings suggestive of positive treatment response. Patient seen in the ER at today's visit and remains confused and agitated. Review of Systems 10 point ROS is negative except as stated in the HPI Past Medical History Past Medical History: COPD, Diabetes Mellitus, Hyperlipidemia, Hypertension, Thyroid Disorder Additional Past Medical History / Comment(s): Hypertension new october 2023 while in hospital, pleural effusion, lung cancer History of Any Multi-Drug Resistant Organisms: None Reported Past Surgical History: Appendectomy, Tubal Ligation Additional Past Surgical History / Comment(s): lung biopsy october 2023, Multi thoracentesis Past Anesthesia/Blood Transfusion Reactions: No Reported Reaction Past Psychological History: No Psychological Hx Reported Smoking Status: Former smoker Past Alcohol Use History: None Reported Past Drug Use History: None Reported - Past Family History Mother Family Medical History: Cancer Additional Family Medical History / Comment(s): Lung Medications and Allergies Home Medications Medication Instructions Recorded Confirmed Type Albuterol Inhaler [Ventolin Hfa 1 - 2 puff INHALATION RT-Q6H PRN 11/06/2308/24 History Inhaler] Levothyroxine Sodium [Levoxyl] 112 mcg PO DAILY 06/15/24 08/24/24 History Potassium Chloride ER [K-Dur 20] 20 meq PO W/BRKFST 06/18/24 08/24/24 History Atorvastatin [Lipitor] 10 mg PO HS 07/23/24 08/24/24 History hydroCHLOROthiazide [Hydrodiuril] 25 mg PO DAILY 07/23/24 08/24/24 History levETIRAcetam [Keppra] 500 mg PO Q12HR #60 tab 07/25/24 08/24/24 Rx Ergocalciferol [Vitamin D2 (1250 1,250 mcg PO WEEKLY 08/24/24 08/24/24 History Mcg = 82406 Iu)] Pantoprazole [Protonix] 40 mg PO DAILY 08/24/24 08/24/24 History dexAMETHasone See Taper PO DIRECTED 08/24/24 08/24/24 History metFORMIN HCL ER [Glucophage XR] 500 mg PO BID 08/24/24 08/24/24 History Allergies Allergy/AdvReac Type Severity Reaction Status Date / Time No Known Allergies Allergy Verified 08/24/24 17:13 Physical Exam Vitals: Vital Signs Temp Pulse Resp BP Pulse Ox 08/25/24 11:30 31 L 22 99/63 96 08/25/24 11:25 100.4 F H 133 H 22 90/57 96 08/25/24 10:24 138 H 22 81/52 08/25/24 10:03 137 H 22 101/90 92 L 08/25/24 08:56 92 L 08/25/24 08:52 98.4 F 129 H 22 107/74 90 L 08/25/24 08:05 94 L 08/25/24 06:00 126 H 20 108/84 94 L 08/25/24 04:30 118 H 20 107/74 94 L 08/25/24 03:00 122 H 30 H 99/63 94 L 08/25/24 02:29 32 H 08/25/24 02:15 120 H 19 97/70 96 08/25/24 01:00 97.4 F L 121 H 19 97/71 94 L 08/24/24 23:13 98.1 F 121 H 19 91/57 94 L 08/24/24 22:00 120 H 18 95/64 95 08/24/24 21:00 120 H 18 89/54 95 08/24/24 20:00 130 H 18 106/64 93 L 08/24/24 19:00 125 H 18 108/72 93 L 08/24/24 18:00 128 H 18 117/84 93 L 08/24/24 17:00 125 H 18 119/89 93 L 08/24/24 16:00 124 H 18 123/93 98 08/24/24 15:00 123 H 20 110/83 96 08/24/24 13:52 122 H 30 H 122/80 98 Intake and Output 08/24/24 08/25/24 08/25/24 22:59 06:59 14:59 Intake Total 19.688 111.322 0 Output Total 1000 290 Balance 19.688 -888.678 -290 Intake: Intake, IV Titration 19.688 111.322 0 Amount Insulin Regular 100 unit 19.688 111.322 0 In Sodium Chloride 0.9% 100 ml @ 0.1 UNITS/KG/HR 7.788 mls/hr IV .[id number] [facility] Rx#:[id number] Output: Urine 1000 290 Uretheral (Francois) 1000 290 - Constitutional General appearance: no acute distress - Respiratory breathing is even and unlabored - Cardiovascular skin warm and dry - Gastrointestinal General gastrointestinal: soft, no tenderness - Integumentary Integumentary: no cyanotic, no jaundiced - Neurologic lethargic, agitated - Musculoskeletal Musculoskeletal: generalized weakness Results CBC & Chem 7: 08/25/24 05:08 08/25/24 16:08 Labs: Abnormal Lab Results - Last 24 Hours (Table) 08/24/24 08/24/24 08/24/24 Range/Units 13:43 13:51 13:51 RBC 6.04 H (4.10-5.20) 10*6/uL Hgb 18.4 H D (12.0-15.0) g/dL Hct 54.0 H (37.2-46.3) % Plt Count 129 L (140-440) 10*3/uL Immature Gran # 0.11 H (0.00-0.04) 10*3/uL Neutrophils # (Manual) 8.24 H (1.3-7.7) k/uL Lymphocytes # (Manual) 0.35 L (1.0-4.8) k/uL Immature Plt Fraction (1.1-6.1) % APTT (22.0-30.0) sec VBG pH (7.31-7.41) VBG HCO3 (24-28) mmol/L Sodium (137-145) mmol/L Potassium (3.5-5.1) mmol/L Chloride 95 L (98-107) mmol/L Carbon Dioxide 10 L (22-30) mmol/L BUN 65 H (7-17) mg/dL Creatinine 2.06 H (0.52-1.04) mg/dL Glucose 868 H* (74-99) mg/dL POC Glucose (mg/dL) >600 H* (70-110) mg/dL Plasma Lactic Acid Angel (0.7-2.0) mmol/L Calcium 10.3 H (8.4-10.2) mg/dL Phosphorus (2.5-4.5) mg/dL Magnesium 3.1 H (1.6-2.3) mg/dL Alkaline Phosphatase 195 H (38-126) U/L Troponin I (0.000-0.034) ng/mL Procalcitonin (0.02-0.50) ng/mL TSH (0.465-4.680) mIU/L Free T4 (0.78-2.19) ng/dL Urine Glucose (UA) (Negative) Urine Ketones (Negative) Urine Blood (Negative) Hyaline Casts (0-2) /lpf Urine Mucus (None) /hpf 08/24/24 08/24/24 08/24/24 Range/Units 13:51 13:51 13:52 RBC (4.10-5.20) 10*6/uL Hgb (12.0-15.0) g/dL Hct (37.2-46.3) % Plt Count (140-440) 10*3/uL Immature Gran # (0.00-0.04) 10*3/uL Neutrophils # (Manual) (1.3-7.7) k/uL Lymphocytes # (Manual) (1.0-4.8) k/uL Immature Plt Fraction (1.1-6.1) % APTT (22.0-30.0) sec VBG pH 7.24 L (7.31-7.41) VBG HCO3 16 L (24-28) mmol/L Sodium (137-145) mmol/L Potassium (3.5-5.1) mmol/L Chloride (98-107) mmol/L Carbon Dioxide (22-30) mmol/L BUN (7-17) mg/dL Creatinine (0.52-1.04) mg/dL Glucose (74-99) mg/dL POC Glucose (mg/dL) (70-110) mg/dL Plasma Lactic Acid Angel 4.7 H* (0.7-2.0) mmol/L Calcium (8.4-10.2) mg/dL Phosphorus (2.5-4.5) mg/dL Magnesium (1.6-2.3) mg/dL Alkaline Phosphatase (38-126) U/L Troponin I 0.115 H* (0.000-0.034) ng/mL Procalcitonin (0.02-0.50) ng/mL TSH (0.465-4.680) mIU/L Free T4 (0.78-2.19) ng/dL Urine Glucose (UA) (Negative) Urine Ketones (Negative) Urine Blood (Negative) Hyaline Casts (0-2) /lpf Urine Mucus (None) /hpf 08/24/24 08/24/24 08/24/24 Range/Units 14:43 15:48 15:48 RBC (4.10-5.20) 10*6/uL Hgb (12.0-15.0) g/dL Hct (37.2-46.3) % Plt Count (140-440) 10*3/uL Immature Gran # (0.00-0.04) 10*3/uL Neutrophils # (Manual) (1.3-7.7) k/uL Lymphocytes # (Manual) (1.0-4.8) k/uL Immature Plt Fraction (1.1-6.1) % APTT 18.6 L (22.0-30.0) sec VBG pH (7.31-7.41) VBG HCO3 (24-28) mmol/L Sodium (137-145) mmol/L Potassium 3.3 L (3.5-5.1) mmol/L Chloride 108 H (98-107) mmol/L Carbon Dioxide 11 L (22-30) mmol/L BUN 58 H (7-17) mg/dL Creatinine 1.70 H (0.52-1.04) mg/dL Glucose 721 H* (74-99) mg/dL POC Glucose (mg/dL) (70-110) mg/dL Plasma Lactic Acid Angel (0.7-2.0) mmol/L Calcium (8.4-10.2) mg/dL Phosphorus (2.5-4.5) mg/dL Magnesium (1.6-2.3) mg/dL Alkaline Phosphatase (38-126) U/L Troponin I (0.000-0.034) ng/mL Procalcitonin (0.02-0.50) ng/mL TSH (0.465-4.680) mIU/L Free T4 (0.78-2.19) ng/dL Urine Glucose (UA) 4+ H (Negative) Urine Ketones 2+ H (Negative) Urine Blood Trace H (Negative) Hyaline Casts 4 H (0-2) /lpf Urine Mucus Rare H (None) /hpf 08/24/24 08/24/24 08/24/24 Range/Units 15:48 16:39 17:46 RBC (4.10-5.20) 10*6/uL Hgb (12.0-15.0) g/dL Hct (37.2-46.3) % Plt Count (140-440) 10*3/uL Immature Gran # (0.00-0.04) 10*3/uL Neutrophils # (Manual) (1.3-7.7) k/uL Lymphocytes # (Manual) (1.0-4.8) k/uL Immature Plt Fraction (1.1-6.1) % APTT (22.0-30.0) sec VBG pH (7.31-7.41) VBG HCO3 (24-28) mmol/L Sodium (137-145) mmol/L Potassium (3.5-5.1) mmol/L Chloride (98-107) mmol/L Carbon Dioxide (22-30) mmol/L BUN (7-17) mg/dL Creatinine (0.52-1.04) mg/dL Glucose (74-99) mg/dL POC Glucose (mg/dL) >600 H* >600 H* (70-110) mg/dL Plasma Lactic Acid Angel 3.4 H* (0.7-2.0) mmol/L Calcium (8.4-10.2) mg/dL Phosphorus (2.5-4.5) mg/dL Magnesium (1.6-2.3) mg/dL Alkaline Phosphatase (38-126) U/L Troponin I (0.000-0.034) ng/mL Procalcitonin (0.02-0.50) ng/mL TSH (0.465-4.680) mIU/L Free T4 (0.78-2.19) ng/dL Urine Glucose (UA) (Negative) Urine Ketones (Negative) Urine Blood (Negative) Hyaline Casts (0-2) /lpf Urine Mucus (None) /hpf 08/24/24 08/24/24 08/24/24 Range/Units 19:06 20:12 20:12 RBC (4.10-5.20) 10*6/uL Hgb (12.0-15.0) g/dL Hct (37.2-46.3) % Plt Count (140-440) 10*3/uL Immature Gran # (0.00-0.04) 10*3/uL Neutrophils # (Manual) (1.3-7.7) k/uL Lymphocytes # (Manual) (1.0-4.8) k/uL Immature Plt Fraction (1.1-6.1) % APTT (22.0-30.0) sec VBG pH (7.31-7.41) VBG HCO3 (24-28) mmol/L Sodium 149 H (137-145) mmol/L Potassium 3.4 L (3.5-5.1) mmol/L Chloride 110 H (98-107) mmol/L Carbon Dioxide 13 L (22-30) mmol/L BUN 64 H (7-17) mg/dL Creatinine 1.51 H (0.52-1.04) mg/dL Glucose 497 H (74-99) mg/dL POC Glucose (mg/dL) >600 H* (70-110) mg/dL Plasma Lactic Acid Angel 4.9 H* (0.7-2.0) mmol/L Calcium (8.4-10.2) mg/dL Phosphorus (2.5-4.5) mg/dL Magnesium (1.6-2.3) mg/dL Alkaline Phosphatase (38-126) U/L Troponin I (0.000-0.034) ng/mL Procalcitonin (0.02-0.50) ng/mL TSH (0.465-4.680) mIU/L Free T4 (0.78-2.19) ng/dL Urine Glucose (UA) (Negative) Urine Ketones (Negative) Urine Blood (Negative) Hyaline Casts (0-2) /lpf Urine Mucus (None) /hpf 08/24/24 08/24/24 08/24/24 Range/Units 20:12 20:12 20:20 RBC (4.10-5.20) 10*6/uL Hgb (12.0-15.0) g/dL Hct (37.2-46.3) % Plt Count (140-440) 10*3/uL Immature Gran # (0.00-0.04) 10*3/uL Neutrophils # (Manual) (1.3-7.7) k/uL Lymphocytes # (Manual) (1.0-4.8) k/uL Immature Plt Fraction (1.1-6.1) % APTT (22.0-30.0) sec VBG pH (7.31-7.41) VBG HCO3 (24-28) mmol/L Sodium (137-145) mmol/L Potassium (3.5-5.1) mmol/L Chloride (98-107) mmol/L Carbon Dioxide (22-30) mmol/L BUN (7-17) mg/dL Creatinine (0.52-1.04) mg/dL Glucose (74-99) mg/dL POC Glucose (mg/dL) 428 H (70-110) mg/dL Plasma Lactic Acid Angel (0.7-2.0) mmol/L Calcium (8.4-10.2) mg/dL Phosphorus (2.5-4.5) mg/dL Magnesium (1.6-2.3) mg/dL Alkaline Phosphatase (38-126) U/L Troponin I 0.136 H* (0.000-0.034) ng/mL Procalcitonin (0.02-0.50) ng/mL TSH 0.041 L (0.465-4.680) mIU/L Free T4 2.26 H (0.78-2.19) ng/dL Urine Glucose (UA) (Negative) Urine Ketones (Negative) Urine Blood (Negative) Hyaline Casts (0-2) /lpf Urine Mucus (None) /hpf 08/24/24 08/24/24 08/24/24 Range/Units 21:21 22:28 23:21 RBC (4.10-5.20) 10*6/uL Hgb (12.0-15.0) g/dL Hct (37.2-46.3) % Plt Count (140-440) 10*3/uL Immature Gran # (0.00-0.04) 10*3/uL Neutrophils # (Manual) (1.3-7.7) k/uL Lymphocytes # (Manual) (1.0-4.8) k/uL Immature Plt Fraction (1.1-6.1) % APTT (22.0-30.0) sec VBG pH (7.31-7.41) VBG HCO3 (24-28) mmol/L Sodium (137-145) mmol/L Potassium (3.5-5.1) mmol/L Chloride (98-107) mmol/L Carbon Dioxide (22-30) mmol/L BUN (7-17) mg/dL Creatinine (0.52-1.04) mg/dL Glucose (74-99) mg/dL POC Glucose (mg/dL) 377 H 308 H 250 H (70-110) mg/dL Plasma Lactic Acid Angel (0.7-2.0) mmol/L Calcium (8.4-10.2) mg/dL Phosphorus (2.5-4.5) mg/dL Magnesium (1.6-2.3) mg/dL Alkaline Phosphatase (38-126) U/L Troponin I (0.000-0.034) ng/mL Procalcitonin (0.02-0.50) ng/mL TSH (0.465-4.680) mIU/L Free T4 (0.78-2.19) ng/dL Urine Glucose (UA) (Negative) Urine Ketones (Negative) Urine Blood (Negative) Hyaline Casts (0-2) /lpf Urine Mucus (None) /hpf 08/25/24 08/25/2425 Range/Units 01:06 02:14 02:59 RBC (4.10-5.20) 10*6/uL Hgb (12.0-15.0) g/dL Hct (37.2-46.3) % Plt Count (140-440) 10*3/uL Immature Gran # (0.00-0.04) 10*3/uL Neutrophils # (Manual) (1.3-7.7) k/uL Lymphocytes # (Manual) (1.0-4.8) k/uL Immature Plt Fraction (1.1-6.1) % APTT (22.0-30.0) sec VBG pH (7.31-7.41) VBG HCO3 (24-28) mmol/L Sodium (137-145) mmol/L Potassium (3.5-5.1) mmol/L Chloride (98-107) mmol/L Carbon Dioxide (22-30) mmol/L BUN (7-17) mg/dL Creatinine (0.52-1.04) mg/dL Glucose (74-99) mg/dL POC Glucose (mg/dL) 255 H 217 H 175 H (70-110) mg/dL Plasma Lactic Acid Angel (0.7-2.0) mmol/L Calcium (8.4-10.2) mg/dL Phosphorus (2.5-4.5) mg/dL Magnesium (1.6-2.3) mg/dL Alkaline Phosphatase (38-126) U/L Troponin I (0.000-0.034) ng/mL Procalcitonin (0.02-0.50) ng/mL TSH (0.465-4.680) mIU/L Free T4 (0.78-2.19) ng/dL Urine Glucose (UA) (Negative) Urine Ketones (Negative) Urine Blood (Negative) Hyaline Casts (0-2) /lpf Urine Mucus (None) /hpf 08/25/24 08/25/24 08/25/24 Range/Units 05:08 05:08 05:08 RBC 5.78 H (4.10-5.20) 10*6/uL Hgb 17.4 H (12.0-15.0) g/dL Hct 52.3 H (37.2-46.3) % Plt Count 101 L (140-440) 10*3/uL Immature Gran # 0.13 H (0.00-0.04) 10*3/uL Neutrophils # (Manual) (1.3-7.7) k/uL Lymphocytes # (Manual) 0.32 L (1.0-4.8) k/uL Immature Plt Fraction 6.5 H (1.1-6.1) % APTT (22.0-30.0) sec VBG pH (7.31-7.41) VBG HCO3 (24-28) mmol/L Sodium 150 H (137-145) mmol/L Potassium (3.5-5.1) mmol/L Chloride 115 H (98-107) mmol/L Carbon Dioxide 19 L (22-30) mmol/L BUN 55 H (7-17) mg/dL Creatinine (0.52-1.04) mg/dL Glucose 127 H (74-99) mg/dL POC Glucose (mg/dL) (70-110) mg/dL Plasma Lactic Acid Angel 7.3 H* (0.7-2.0) mmol/L Calcium (8.4-10.2) mg/dL Phosphorus 1.4 L (2.5-4.5) mg/dL Magnesium (1.6-2.3) mg/dL Alkaline Phosphatase (38-126) U/L Troponin I (0.000-0.034) ng/mL Procalcitonin (0.02-0.50) ng/mL TSH (0.465-4.680) mIU/L Free T4 (0.78-2.19) ng/dL Urine Glucose (UA) (Negative) Urine Ketones (Negative) Urine Blood (Negative) Hyaline Casts (0-2) /lpf Urine Mucus (None) /hpf 08/25/24 08/25/24 08/25/24 Range/Units 07:36 07:36 08:55 RBC (4.10-5.20) 10*6/uL Hgb (12.0-15.0) g/dL Hct (37.2-46.3) % Plt Count (140-440) 10*3/uL Immature Gran # (0.00-0.04) 10*3/uL Neutrophils # (Manual) (1.3-7.7) k/uL Lymphocytes # (Manual) (1.0-4.8) k/uL Immature Plt Fraction (1.1-6.1) % APTT (22.0-30.0) sec VBG pH (7.31-7.41) VBG HCO3 (24-28) mmol/L Sodium 149 H (137-145) mmol/L Potassium (3.5-5.1) mmol/L Chloride 116 H (98-107) mmol/L Carbon Dioxide (22-30) mmol/L BUN 54 H (7-17) mg/dL Creatinine (0.52-1.04) mg/dL Glucose 109 H (74-99) mg/dL POC Glucose (mg/dL) 172 H (70-110) mg/dL Plasma Lactic Acid Angel (0.7-2.0) mmol/L Calcium (8.4-10.2) mg/dL Phosphorus (2.5-4.5) mg/dL Magnesium (1.6-2.3) mg/dL Alkaline Phosphatase (38-126) U/L Troponin I (0.000-0.034) ng/mL Procalcitonin 0.60 H (0.02-0.50) ng/mL TSH (0.465-4.680) mIU/L Free T4 (0.78-2.19) ng/dL Urine Glucose (UA) (Negative) Urine Ketones (Negative) Urine Blood (Negative) Hyaline Casts (0-2) /lpf Urine Mucus (None) /hpf 08/25/24 08/25/24 08/25/24 Range/Units 09:07 09:57 11:11 RBC (4.10-5.20) 10*6/uL Hgb (12.0-15.0) g/dL Hct (37.2-46.3) % Plt Count (140-440) 10*3/uL Immature Gran # (0.00-0.04) 10*3/uL Neutrophils # (Manual) (1.3-7.7) k/uL Lymphocytes # (Manual) (1.0-4.8) k/uL Immature Plt Fraction (1.1-6.1) % APTT (22.0-30.0) sec VBG pH (7.31-7.41) VBG HCO3 (24-28) mmol/L Sodium (137-145) mmol/L Potassium (3.5-5.1) mmol/L Chloride (98-107) mmol/L Carbon Dioxide (22-30) mmol/L BUN (7-17) mg/dL Creatinine (0.52-1.04) mg/dL Glucose (74-99) mg/dL POC Glucose (mg/dL) 191 H 169 H (70-110) mg/dL Plasma Lactic Acid Angel 5.1 H* (0.7-2.0) mmol/L Calcium (8.4-10.2) mg/dL Phosphorus (2.5-4.5) mg/dL Magnesium (1.6-2.3) mg/dL Alkaline Phosphatase (38-126) U/L Troponin I (0.000-0.034) ng/mL Procalcitonin (0.02-0.50) ng/mL TSH (0.465-4.680) mIU/L Free T4 (0.78-2.19) ng/dL Urine Glucose (UA) (Negative) Urine Ketones (Negative) Urine Blood (Negative) Hyaline Casts (0-2) /lpf Urine Mucus (None) /hpf Abdominal x-ray: report reviewed CT Scan - head: report reviewed Assessment and Plan (1) Diabetic ketoacidosis Current Visit: Yes Status: Acute Priority: High Code(s): E11.10 - TYPE 2 DIABETES MELLITUS WITH KETOACIDOSIS WITHOUT COMA SNOMED Code(s): 545891931 (2) Extensive stage primary small cell carcinoma of lung Current Visit: Yes Status: Acute Priority: High Code(s): C34.90 - MALIGNANT NEOPLASM OF UNSP PART OF UNSP BRONCHUS OR LUNG SNOMED Code(s): 895933087287633 (3) Metastasis to brain Current Visit: Yes Status: Acute Priority: High Code(s): C79.31 - SECONDARY MALIGNANT NEOPLASM OF BRAIN SNOMED Code(s): 22217321 Plan: DKA, confusion Presented with confusion over the least 3 days. -Admitted for DKA, blood glucose noted 868, likely related to recent steroid use -Patient is currently on a insulin drip and blood glucose has improved, today 191. -CT brain without contrast showing no acute intracranial processes. Findings suggestive of positive treatment response. Metastatic SCLC: -Oncology history as dictated in the HPI -Last received Tecentriq on 07/07/24 -Undergoing brain RT -Continue decadron 2mg BID. Case discussed with Dr. Mccarty Doctor attests: I performed a history and physical examination of this patient, developed impression and plan of care. Discussed with dictator. I agree with dictators note, documented as a scribe.
[2024-08-25] MEDS: ZINC OXIDE PASTE (Z-GUARD) 1 APPLIC TOPICAL PRN (22:05)
[2024-08-25 23:38] VITALS: RESP 20
--- NOTE | 2024-08-26 23:09 | P.DS ---
Providers Date of admission: 08/24/24 15:57 Attending physician: Vincenzo Durand Consults: 08/24/24 15:53 Consult Physician Urgent Consulting Provider: Amador Brunner Consult Reason/Comments: oncological care Do you want consulting provider notified?: Yes Consult Physician Urgent Consulting Provider: Margot Mcgarry Consult Reason/Comments: walter Do you want consulting provider notified?: Yes 08/25/24 16:45 Consult Physician Urgent Consulting Provider: Xochilt Marte Consult Reason/Comments: hypotension and high lactic acid Do you want consulting provider notified?: Yes Primary care physician: [facility] Course: Please refer to progress note from today Patient Condition at Discharge: Serious Plan - Discharge Summary New Discharge Prescriptions: No Action Levothyroxine Sodium [Levoxyl] 112 mcg PO DAILY Atorvastatin [Lipitor] 10 mg PO HS levETIRAcetam [Keppra] 500 mg PO Q12HR #60 tab dexAMETHasone See Taper PO DIRECTED Ergocalciferol [Vitamin D2 (1250 Mcg = 58600 Iu)] 1,250 mcg PO WEEKLY Pantoprazole [Protonix] 40 mg PO DAILY Albuterol Inhaler [Ventolin Hfa Inhaler] 1 - 2 puff INHALATION RT-Q6H PRN PRN Reason: Wheezing Potassium Chloride ER [K-Dur 20] 20 meq PO W/BRKFST hydroCHLOROthiazide [Hydrodiuril] 25 mg PO DAILY metFORMIN HCL ER [Glucophage XR] 500 mg PO BID Discharge Medication List Albuterol Inhaler [Ventolin Hfa Inhaler] 1 - 2 puff INHALATION RT-Q6H PRN 11/06/23 [History] Levothyroxine Sodium [Levoxyl] 112 mcg PO DAILY 06/15/24 [History] Potassium Chloride ER [K-Dur 20] 20 meq PO W/BRKFST 06/18/24 [History] Atorvastatin [Lipitor] 10 mg PO HS 07/23/24 [History] hydroCHLOROthiazide [Hydrodiuril] 25 mg PO DAILY 07/23/24 [History] levETIRAcetam [Keppra] 500 mg PO Q12HR #60 tab 07/25/24 [Rx] Ergocalciferol [Vitamin D2 (1250 Mcg = 23701 Iu)] 1,250 mcg PO WEEKLY 08/24/24 [History] Pantoprazole [Protonix] 40 mg PO DAILY 08/24/24 [History] dexAMETHasone See Taper PO DIRECTED 08/24/24 [History] metFORMIN HCL ER [Glucophage XR] 500 mg PO BID 08/24/24 [History] Follow up Appointment(s)/Referral(s): Elza Fairbanks MD [Primary Care Provider] - 1-2 days Discharge Dis[facility]: [facility]
[2024-08-31] MEDS ORDERED: ERGOCALCIFEROL 1,250 MCG (50,000 IU) CAPSULE PO SCH (09:00)
== END 2024-08-26 11:43 | disposition hospice, inpatient (51) | DRG 420 ==
LOC: EC 11:18 → 3SCARD 15:57 → 5NMEDONC 08-25 17:56
PROVIDERS: ADMIT Hospitalist; ATTEND Hospitalist
DX: E11.10 Type 2 diabetes mellitus with ketoacidosis without coma (principal); G92.8 Other toxic encephalopathy; C79.31 Secondary malignant neoplasm of brain; C79.51 Secondary malignant neoplasm of bone; E87.0 Hyperosmolality and hypernatremia; E83.39 Other disorders of phosphorus metabolism; Z66 Do not resuscitate; Z51.5 Encounter for palliative care; C34.90 Malignant neoplasm of unspecified part of unspecified bronchus or lung; N17.9 Acute kidney failure, unspecified; E86.0 Dehydration; E86.1 Hypovolemia; R00.0 Tachycardia, unspecified; R79.89 Other specified abnormal findings of blood chemistry; I95.9 Hypotension, unspecified; Z92.21 Personal history of antineoplastic chemotherapy; Z92.3 Personal history of irradiation; Z79.890 Hormone replacement therapy; Z79.899 Other long term (current) drug therapy; Z79.84 Long term (current) use of oral hypoglycemic drugs; Z79.52 Long term (current) use of systemic steroids; Z87.891 Personal history of nicotine dependence
CPT/HCPCS: 36415; 51702; 70450; 71046; 80048; 80051; 80053; 81001; 82009; 82565; 82803; 82947; 83605; 83735; 84100; 84145; 84439; 84443; 84484; 84520; 85025; 85610; 85730; 87040; 87636; 93005; 94760; 96361; 96365; 96366; 96372; 96375; 96376; 99291

== ENCOUNTER 2024-08-26 10:39 | Inpatient (IN) | payer MEDICAID ==
[2024-08-26] MEDS ORDERED: ONDANSETRON 4 MG/2 ML VIAL IVP PRN (11:06)
[2024-08-26] MEDS ORDERED: GLYCOPYRROLATE 0.2 MG/ML 2 ML VIAL IVP PRN (11:06)
[2024-08-26] MEDS: MORPHINE ORAL SOLN 10 MG/5 ML CUP PO SCH (13:15)
[2024-08-26] MEDS: SCOPOLAMINE 1 MG/72 HR PATCH TRANSDERM SCH (13:23)
[2024-08-26] MEDS: ATROPINE OPHTH SOLN 1% 5ML BTL SUBLINGUAL PRN (21:34)
[2024-08-26] MEDS: MORPHINE SULFATE 4 MG/ML SYRINGE IV PRN (21:38)
--- NOTE | 2024-08-26 23:16 | P.HPIM ---
History of Present Illness Hospital course: Please consider this note as discharge summary After rapid response was called and patient was started on broad-spectrum antibiotics for spiking fever. 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 She is a known case of lung cancer and received 4 cycles of chemotherapy. However she developed a nodule in her right parietal scalp about a month ago and she was admitted to the hospital, MRI of the brain showing numerous metastatic lesions into the brain. She was started on dexamethasone and Keppra prophylactically after evaluated by neurologist and discharge. She follow-up with her radiation oncologist Dr. Rene for radiotherapy. Patient presents because of altered mental status and feeling very weak Patient found to have diabetic ketoacidosis acute kidney injury and elevated troponin with atrial flutter and hyponatremia. Patient was resuscitated with fluid and insulin drip and symptomatic treatment However patient did not improve and To deteriorate and she became hypotensive ho wever despite IV fluid resuscitation. Lactic acid was elevated. Patient was not doing well, rapid response team was called for her called a team response. Antibiotics was started however family decided to proceed with comfort care measures Currently she is lying in bed comfortable nonverbal does not make movements under comfort care measures Review of Systems \ ROS unobtainable: due to mental status Past Medical History Past Medical History: COPD, Diabetes Mellitus, Hyperlipidemia, Hypertension, Thyroid Disorder Additional Past Medical History / Comment(s): Hypertension new october 2023 while in hospital, pleural effusion, lung cancer History of Any Multi-Drug Resistant Organisms: None Reported Past Surgical History: Appendectomy, Tubal Ligation Additional Past Surgical History / Comment(s): lung biopsy october 2023, Multi thoracentesis Past Anesthesia/Blood Transfusion Reactions: No Reported Reaction Smoking Status: Former smoker - Past Family History Mother Family Medical History: Cancer Additional Family Medical History / Comment(s): Lung Medications and Allergies Home Medications Medication Instructions Recorded Confirmed Type Albuterol Inhaler [Ventolin Hfa 1 - 2 puff INHALATION RT-Q6H PRN 11/06/23 History Inhaler] Levothyroxine Sodium [Levoxyl] 112 mcg PO DAILY 06/15/24 08/26/24 History Potassium Chloride ER [K-Dur 20] 20 meq PO W/BRKFST 06/18/24 08/26/24 History Atorvastatin [Lipitor] 10 mg PO HS 07/23/24 08/26/24 History hydroCHLOROthiazide [Hydrodiuril] 25 mg PO DAILY 07/23/24 08/26/24 History levETIRAcetam [Keppra] 500 mg PO Q12HR #60 tab 07/25/24 08/26/24 Rx Ergocalciferol [Vitamin D2 (1250 1,250 mcg PO WEEKLY 08/24/24 08/26/24 History Mcg = 49132 Iu)] Pantoprazole [Protonix] 40 mg PO DAILY 08/24/24 08/26/24 History dexAMETHasone See Taper PO DIRECTED 08/24/24 08/26/24 History metFORMIN HCL ER [Glucophage XR] 500 mg PO BID 08/24/24 08/26/24 History Allergies Allergy/AdvReac Type Severity Reaction Status Date / Time No Known Allergies Allergy Verified 08/24/24 17:13 Physical Exam Vitals: Intake and Output 08/26/24 08/26/24 08/26/24 06:59 14:59 22:59 Output Total 700 Balance -700 Output: Urine 700 Other: Voiding Method Indwelling Catheter # Bowel Movements 1 Weight 77.111 kg -GENERAL: The patient is obtained and nonverbal HEENT: Pupils are round and equally reacting to light. EOMI. No scleral icterus. No conjunctival pallor. Normocephalic, atraumatic. No pharyngeal erythema. No thyromegaly. CARDIOVASCULAR: S1 and S2 present. No murmurs, rubs, or gallops. PULMONARY: Chest is clear to auscultation, no wheezing , no crackles. ABDOMEN: Soft, nontender, nondistended, normoactive bowel sounds. No palpable organomegaly. MUSCULOSKELETAL: No joint swelling or deformity. EXTREMITIES: No cyanosis, clubbing, or pedal edema. NEUROLOGICAL: Gross neurological examination did not reveal any focal deficits. SKIN: No rashes. no petechiae. 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 Status post chemotherapy and radiotherapy to the brain. CT of the brain on admission showing decrease brain lesions Toxic/metabolic encephalopathy Hypernatremia Acute kidney injury. Resolved Metabolic acidosis Lactic acidosis Severe dehydration and hypovolemia Sinus tachycardia rather than atrial flutter with elevated troponin. Plan: Continue with comfort care measures Continue with pain medication DO NOT RESUSCITATE order Prognosis is very poor
[2024-08-27] MEDS ORDERED: MORPHINE CONC SOLN 10mg/0.5mL ORAL SYRG PO SCH ×2 (04:00)
[2024-08-27] MEDS: MORPHINE ORAL SOLN 10 MG/5 ML CUP PO SCH (05:13)
[2024-08-27] MEDS: LORazepam 1 MG/0.5 ML VIAL IV PRN (08:46)
[2024-08-27] MEDS: MORPHINE SULFATE 100 MG in SODIUM CHLORIDE 0.9% 90 ML IV PRN (10:37)
== END 2024-08-27 13:19 | disposition expired | DRG 951 ==
LOC: 5NMEDONC 12:30
PROVIDERS: ADMIT Hospitalist; ATTEND Hospitalist
DX: Z51.5 Encounter for palliative care (principal); E11.10 Type 2 diabetes mellitus with ketoacidosis without coma; G92.8 Other toxic encephalopathy; C79.31 Secondary malignant neoplasm of brain; C34.90 Malignant neoplasm of unspecified part of unspecified bronchus or lung; N17.9 Acute kidney failure, unspecified; I48.92 Unspecified atrial flutter; E87.1 Hypo-osmolality and hyponatremia; Z66 Do not resuscitate; E86.0 Dehydration; E86.1 Hypovolemia; I95.9 Hypotension, unspecified; R79.89 Other specified abnormal findings of blood chemistry; R00.0 Tachycardia, unspecified; Z79.890 Hormone replacement therapy; Z79.84 Long term (current) use of oral hypoglycemic drugs; Z92.21 Personal history of antineoplastic chemotherapy; Z87.891 Personal history of nicotine dependence; Z79.899 Other long term (current) drug therapy; Z92.3 Personal history of irradiation